=== PATIENT | female | born 1995 | race Caucasian/White ===

== ENCOUNTER 2023-12-29 20:43 | Emergency (ER) | payer OTHER, SELFPAY ==
[2023-12-29 20:44] VITALS: BP 113/57; PULSE 90; RESP 18; TEMP 36.3; O2SAT 100
--- NOTE | 2023-12-29 21:35 | ED.DENTAL ---
HPI - Dental/Oral General Chief complaint: Dental/Oral Stated complaint: dental pain/abscess Time Seen by Provider: 12/29/23 21:06 Source: patient Mode of arrival: ambulatory Limitations: no limitations History of Present Illness HPI Narrative: Patient is a 28-year-old female who presents the ED with report of lower dental pain. Patient reports having pain along tooth number 19 along her left lower mouth for the last 1-1.5 weeks. she has notice intermittent abscess formation along the outer gum line of this tooth. Has had some drainage from the tooth. Also reports pain to tooth number 32 and states it broke off today while she was eating pretzels. Patient reports intermittent diaphoresis. Denies known fever. Denies difficulty breathing or swallowing. Denies vomiting. Patient took Toradol and Tylenol earlier today. She does not currently have a dentist. Related Data Allergies Allergy/AdvReac Type Severity Reaction Status Date / Time No Known Allergies Allergy Verified 12/29/23 20:47 Review of Systems Review of Systems: CONSTITUTIONAL: See HPI. ENT: see HPI. CARDIOVASCULAR: Denies chest pain. RESPIRATORY: Denies dyspnea. GASTROINTESTINAL: Denies abdominal pain, nausea, vomiting. All systems reviewed & are unremarkable except as noted in HPI and below Exam Narrative: GENERAL: Well appearing, well-nourished, non-toxic, in no acute distress. HEAD: Normocephalic, atraumatic. ENT: TTP along L lower gumline surrounding teeth #18-19. Small pinpoint area of previous abscess formation to outer gumline of tooth #19, no active fluctuance or drainage. Cracked tooth to R lower mouth, tooth #32. TTP of gumline surrounding tooth. No focal fluctuance. No stridor or trismus. Tolerating secretions. No erythema to posterior pharynx. no tonsillar hypertrophy. uvula midline. RESPIRATORY: Airway patent, respirations nonlabored. No stridor or distress. CARDIOVASCULAR: Regular rate and rhythm MUSCULOSKELETAL: Moves all extremities. No gross deformities. SKIN: Warm, dry, normal color. NEURO: A&O X3. Speech clear. PSYCHIATRIC: Appropriate mood and affect. Normal interaction. Course Vital Signs Vital signs: Vital Signs Temperature 97.4 F L 12/29/23 20:44 Pulse Rate 90 12/29/23 20:44 Respiratory Rate 18 12/29/23 20:44 Blood Pressure 113/57 L 12/29/23 20:44 Pulse Oximetry 100 12/29/23 20:44 Oxygen Delivery Room Air 12/29/23 20:44 Temperature 97.4 F L 12/29/23 20:44 Pulse Rate 90 12/29/23 20:44 Respiratory Rate 18 12/29/23 20:44 Blood Pressure 113/57 L 12/29/23 20:44 Pulse Oximetry 100 12/29/23 20:44 Oxygen Delivery Room Air 12/29/23 20:44 MDM - Dental/Oral MDM Narrative Medical decision making narrative: Patient's pain is consistent with dental caries. There are no focal signs of space-occupying abscess at this time, does appear consistent with recent abscess but no focal fluctuance right now. The patient is controlling secretions well without signs of airway compromise. Patient is felt reasonable for outpatient follow-up with dental evaluation. Will start patient on Augmentin. Advised to continue Tylenol and ibuprofen as needed for pain. Given list of dentists to follow up with. Given return precautions. Discharged in stable condition. Medical Records Attestation: I reviewed the patient's medical records. Discharge Plan Discharge Clinical Impression: Toothache, Dental caries, Dental abscess, Fracture of tooth Patient Disposition: Home, Self-Care Condition: Stable Instructions: Antibiotic Form, Dental Abscess (ED), Toothache (ED) Additional Instructions: Take antibiotics as prescribed. Finish the entire course. Continue Tylenol and ibuprofen around the clock as needed for pain. Stay well hydrated. Follow-up with dentist for further evaluation. Return to the ED if you experience worsening or severe pain or swelling, large abscess formation, unable to keep
[2023-12-29] MEDS: KETOROLAC (*BKC) 60 MG/2 ML VIAL IM (21:40)
[2023-12-29] MEDS: AMOXICILLIN/CLAVULANATE K 875-125 MG TAB 1 TABLET PO (21:40)
== END 2023-12-29 21:47 | disposition home or self-care (01) ==
LOC: ANHED 21:41
PROVIDERS: Emergency Provider Physician Assistant
DX: K04.7 Periapical abscess without sinus (principal); K02.9 Dental caries, unspecified; S02.5XXA Fracture of tooth (traumatic), initial encounter for closed fracture; K08.89 Other specified disorders of teeth and supporting structures; X58.XXXA Exposure to other specified factors, initial encounter
CPT/HCPCS: 96372; 99283; A9270; J1885

== ENCOUNTER 2025-05-31 17:22 | Emergency (ER) | payer MEDICAID, SELFPAY ==
--- OUTSIDE RECORDS SUMMARY | 2025-01-30 08:30 | XMS_ITS ---
Author Organization [facility] Address [address] [place], [place] [address] Care Team Providers Care Night Auditor Name Role Phone Roberta Hollis Unavailable [phone] REASON FOR VISIT confirmation of preg Encounters Encounter Location Date Provider Diagnosis [address] [address] 01/30/2025 Roberta Hollis Plan Of Treatment No Information Progress Notes * Michelle SETHDOB: [birth year] (30 yo F)Acc No.[id number]:01/30/2025 Progress Note Patient: Blu Orrley Provider: Dawit Hollis M.D. :1995 A ge:29 Y S ex:Female Date:01/30/2025 Phone: Address:[address] [place], [place] [id number] Subjective: * Chief Complaints: * C onfirmation of preg * Electronic signature of Yanely Hollis on 05/31/2025 at 05:23 PM SHEET CUTTER Sign off status: Pending * Provider: Dawit Hollis M.D. Date: 0 01/30/2025 Generated for Tji ng/Fanickg/eTransmitting on: 07/31/2024 05:23 PM SHEET CUTTER
--- OUTSIDE RECORDS SUMMARY | 2025-01-30 09:00 | XMS_ITS ---
Author Organization [facility] Address [address] [place], [place] [address] Care Team Providers Care Dealer Compliance Representative Name Role Phone Telma Roberta Unavailable [phone] REASON FOR VISIT confirmation of , self pay Encounters Encounter Location Date Provider Diagnosis [address] [address] 01/30/2025 Roberta Hollis Plan Of Treatment No Information Progress Notes * Michelle SETHDOB: [birth year] (30 yo F)Acc No.[id number]:01/30/2025 Progress Notes Patient: Blu Orrley Provider: Dawit Hollis M.D. :1995 A ge:29 Y S ex:Female Date:01/30/2025 Phone: Address:[address] [place], [place] [id number] Subjective: * Chief Complaints: * C onfirmation of , self pay * Electronic signature of Yanely Hollis on 05/31/2025 at 05:23 PM CAN TOP SETTER Sign off status: Pending * Provider: Dawit Hollis M.D. Date: 0 01/30/2025 Generated for Tji ng/Faxing/eTransmitting on: 07/31/2024 05:23 PM CAN TOP SETTER
--- OUTSIDE RECORDS SUMMARY | 2025-05-31 17:23 | XMS_ITS | Encounter Summary ---
Author Organization [facility] Address [address] [place] [address] Care Team Providers Care Facility Designer Name Role Phone No, Physician Primary Care Provider [phone] Miscellaneous, Not In File Primary Care Provider Unavailable No, Physician Primary Care Provider [phone] Miscellaneous, Not In File Primary Care Provider Unavailable No, Physician Primary Care Provider [phone] Encounter Details Date Type Department Care Team (Late st Contact Info) Description 06/07/2017 Documentation [facility] Case Management [address] [place] [address] Allison Quiles, HAND TUFTER Social History Tobacco Use Types Packs/Day Years Used Date Smoking Tobacco: Some Days Cigarettes Smokeless Tobacco: Never Alcohol Use Standard Drinks/Week Comments No 0 (1 standard drink = 0.6 oz pur e alcohol) Comments No Sex and Gender Information Value Date Recorded Sex Assigned at Not on file Legal Sex Female 10:35 AM WIRER PASSENGER CAR Gender Identity Female 2023 7:33 PM CDT Sexual Orientation Not on file documented as of this encounter Functional Status * Mayo Fall Risk Question Answer Date of Assessment Author History of Falling 0 06/07/2017 7:36 PM Katerine Jones RN Secondary Diagnosis 0 06/07/2017 7:36 PM CS T Katerine Riddle RN Ambulatory Aids 0 06/07/2017 7:36 PM Katerine Catalan RN Intravenous Therapy/Heparin/Saline Lock 0 06/07/2017 7:36 PM Katerine Jones RN Gait/Transferring 0 06/07/2017 7:36 PM Katerine Jones RN Mental Status 0 06/07/2017 7:36 PM Katerine Romero RN * Fall Risk Interventions Question Answer Date of Assessment Author All Low Fall Interventions Applied Yes 06/07/2017 7:36 PM Katerine Jones RN * Question Answer Date of Assessment Author BP Method Automatic 06/07/2017 9:[address], RN MAP (mmHg) 87 06/07/2017 11:00 PM Katerine Romero RN * Fall Risk Interventions Question Answer Date of Assessment Author All Low Fall Interventions Applied Yes 06/07/2017 7:36 PM Katerine Jones RN * Question Answer Date of Assessment Author BP Method Automatic 06/07/2017 9:[address], RN documented as of this encounter Plan of Treatment Not on file documented as of this encounter Visit Diagnoses Not on filedocumented in this encounter Additional Health Concerns Infection Onset Date Last Indicated Resolved Time COVID: Suspected 06/03/2020 06/03/2020 06/03/2020 4:32 AM WIRER PASSENGER CAR Respiratory Infection (JODIE), contact + droplet Comment:Automatically added due to negative COVID-19 result. 06/03/2020 06/03/2020 06/17/2020 3:0 5 AM WIRER PASSENGER CAR COVID19 06/19/2021 06/19/2021 07/05/2021 3:05 AM WIRER PASSENGER CAR COVID: Recovered Comment:Added based on recent COVID infection. 07/05/2021 07/26/2021 11/02/2021 3:05 AM C DT COVID: Suspected 07/01/2023 07/01/2023 07/01/2023 5:33 AM WIRER PASSENGER CAR COVID: Suspected 02/08/2024 02/08/2024 02/08/2024 8:35 PM CDT documented as of this encounter Care Teams Facility Designer Relationship Specialty Start Date End Date No, Physician PCP - General 10/23/16 03/15/18 Miscellaneous, Not In File PCP - General 03/16/18 No, Physician PCP - General 03/26/19 02/12/23 Miscellaneous, Not In File PCP - General 02/13/2306/30 No, Physician PCP - General 07/01/23 documented as of this encounter
--- OUTSIDE RECORDS SUMMARY | 2025-05-31 17:23 | XMS_ITS | Patient Health Record ---
Author Organization [facility] Address [address] [place] [address] Care Team Providers Care Latin Teacher Name Role Phone Magalis Garcíabelen Primary Care Provider [phone] Allergies Allergen (clinical drug ingredient) Drug/Non Drug Allergy documented on EMR Reaction Allergy Type Onset Date Status Information temporarily unavailable Trazodone (uncoded) hives Allergy Active Reason For Referral No Information Medications Medication SIG (Take, Route, Frequency, Duration) Notes Start Date End Date Status CeleXA 40 MG 1 tablet Orally Once a day; Duration: 30 day(s) 01/23/2017 Not-Taking traZODone HCl 100 MG 1 tablet at bedtime Orally Once a day out for 1 month Not-Taking Zoloft 50 MG 1 tablet Orally Once a day stopped taking 1 month ago Not-Taking Vistaril 25 MG 1-2 capsule as needed Orally at night; Duration: 30 day(s) 01/23/2017 Not-Taking BuSpar 15 MG 2 tablets Orally Twice a day; Duration: 30 days 05/16/2017 Not-Taking BuSpar 30 MG 1 tablet Orally three times daily; Duration: 30 days 01/23/2017 Active hydrOXYzine HCl 25 MG 1 tablet as needed Orally every 8 hrs; Duration: 30 day(s) 12/12/2017 Active traZODone HCl 150 MG 1 tablet at bedtime Orally Once a day; Duration: 30 day(s) 12/12/2017 Active Wellbutrin 75 MG 1 tablet Orally twice a day; Duration: 30 days 11/22/2017 Active LaMICtal 25 MG 1 tablet daily x 2 weeks, then increase to 2 tablets daily Orally once daily; Duration: 30 day(s) 08/22/2017 Active BuSpar 15 MG 1 tablet Orally Twice a day; Duration: 30 days 11/22/2017 Active Social History Tobacco Use: Social History Observation Description Date Details (start date - stop date) Current Smoker NA - NA Dont use, Tobacco Use/Smoking Question Answer Notes Are you a current smoker How often do you smoke cigarettes? every day How many cigarettes a day do you smoke? 31 or mo re How soon after you wake up do you smoke your fir st cigarette? within 5 minutes Are you interested in quitting? Not ready to keshawn t Additional Findings: Tobacco User Chain smoker Problems Problem Type SNOMED Code ICD Code Onset Dates Problem Status W/U Status Risk Notes Problem Information temporarily unavailable Primary insomnia (F51.01) Active confirmed Problem Information temporarily unavailable Tobacco dependence (F17.200) Active confirmed Problem Information temporarily unavailable Mood disorder (F39) Active confirmed Problem Information temporarily unavailable Anxiety (F41.9) Active confirmed Problem Information temporarily unavailable Depression, unspecified depression type (F32.9) Active confirmed Plan Of Treatment Future Test Test Name Order Date Test, Urine 05/30/2018 Drug Analysis, Unknown, Qual 05/30/2018 Insurance Providers Payer Name Payer Address Payer Phone Subscriber Number Group Number Insured Name Patient Relationship to Insured Coverage Start Date Coverage End Date [employer] [address] [place] [address] [id number] Michelle Sauceda Self - patient is the insured 7 [employer] [facility] [address] [place] [address] [id number] Michelle Sauceda Self - patient is the insured 7 Medical (General) History Medical History History ICD Code Anxiety Depression Bipolar disorder Hospitalization History Reason Date(Month/Year) Touchette-cutting, anger 09/2016 suicide attempt I took 50 [facility] 2015
--- OUTSIDE RECORDS SUMMARY | 2025-05-31 17:24 | XMS_ITS | Patient Health Record ---
Author Organization [facility] Address [address] [place], [place] [address] Care Team Providers Care Hearing Impaired Teacher Name Role Phone Roberta Hollis Unavailable [phone] Reason For Referral No Information Plan Of Treatment No Information
[2025-05-31 17:27] VITALS: BP 109/67; PULSE 75; RESP 18; TEMP 36; O2SAT 100
--- NOTE | 2025-05-31 18:03 | ED.GENADULT ---
HPI - General Adult General Chief complaint: Dental/Oral Stated complaint: tooth infection Time Seen by Provider: 05/31/25 17:49 History of Present Illness HPI narrative: 30-year-old female presented to the emergency department for evaluation for worsening dental pain and right-sided ear pain. Patient reports symptoms started few days ago. Patient does have extended history of dental fracture and dental caries. Patient has been attempting to get outpatient follow-up with a dentist. Patient did just have a child delivery approximately 17 days ago. Related Data Allergies Allergy/AdvReac Type Severity Reaction Status Date / Time trazodone Allergy Intermediate Hives Verified 05/31/25 17:24 Review of Systems Review of Systems: All systems reviewed & are unremarkable except as noted in HPI and below Exam Narrative: APPEARANCE: Well appearing, no pain, no distress, well-nourished. HEAD: normocephalic, atraumatic. EYES: PERRLA/EOMI, conjunctivae clear. NOSE: Normal no drainage EARS:TMS clear with good light reflex. THROAT: Pharynx clear, no exudate. NECK: Supple. No adenopathy, no masses. RESPIRATORY: Airway patent, respirations nonlabored. Clear to auscultation bilaterally, no rales, rhonchi, wheezing. CARDIOVASCULAR: Regular rate and rhythm without murmurs rubs or gallops. ABDOMINAL: Soft, nontender, nondistended, normal bowel sounds MUSCULOSKELETAL: Moves all extremities. Strength/ROM intact, No edema, No calf tenderness. NEURO: Alert. Cranial nerves II through XII intact. Good gait. Good coordination SKIN: Warm, dry. Normal Color Course Vital Signs Vital signs: Vital Signs Temperature 96.8 F L 05/31/25 17: Pulse Rate 75 05/31/25 17:27 Respiratory Rate 18 05/31/25 17:27 Blood Pressure 109/67 05/31/25 17:27 Pulse Oximetry 100 05/31/25 17:27 Temperature 96.8 F L 05/31/25 17:27 Pulse Rate 75 05/31/25 17:27 Respiratory Rate 18 05/31/25 17:27 Blood Pressure 109/67 05/31/25 17:27 Pulse Oximetry 100 05/31/25 17:27 Medical Decision Making MDM Narrative Medical decision making narrative: 30-year-old female presents to the emergency department for evaluation for dental pain. Patient was started on antibiotics in the emergency department. Differential Diagnosis Differential Diagnosis: dental abscess, dental fracture, dental caries, trismus Vital Signs Vital Signs: Vital Signs Temperature 96.8 F L 05/31/25 17:27 Pulse Rate 75 05/31/25 17:27 Respiratory Rate 18 05/31/25 17:27 Blood Pressure 109/67 05/31/25 17:27 Pulse Oximetry 100 05/31/25 17:27 Temperature 96.8 F L 05/31/25 17:27 Pulse Rate 75 05/31/25 17:27 Respiratory Rate 18 05/31/25 17:27 Blood Pressure 109/67 05/31/25 17:27 Pulse Oximetry 100 05/31/25 17:27 Discharge Plan Discharge Clinical Impression: Toothache, Dental caries, Otalgia Patient Disposition: Home Condition: Stable Instructions: Antibiotic Form, Toothache (ED) Additional Instructions: Tylenol and ibuprofen for pain control. Replace Tylenol with [place] for additional pain control. Antibiotic as directed until completed. Have close follow-up with your dentist. [place] as needed to help with congestion and ear pain. If you have any worsening symptoms then please call or return to the emergency department. [facility] [address] [place] [id number] Patient Language: Luxembourgish Prescriptions: New hydrocodone-acetaminophen 5-325 mg tablet 1 tablet PO Q12H PRN (Reason: pain) Qty: 14 0RF amoxicillin-pot clavulanate 875-125 mg tablet 1 tablet PO Q12H 7 Days Qty: 14 0RF No Action amoxicillin-pot clavulanate 875-125 mg tablet 1 tablet PO Q12H 7 Days Qty: 14 0RF Follow-up/Referrals: PHYSICIAN,MAIL OFFICER [Primary Care Provider, Internal Medicine] Stand Alone Forms: Work/School Release IP
--- OUTSIDE RECORDS SUMMARY | 2025-05-31 18:10 | XMS_ITS | Clinical Summary ---
Author Organization [facility] Address [address] [place] [address] Care Team Providers Care Finishing Range Supervisor Name Role Phone No, Physician Primary Care Provider [phone] Allergies Active Allergy Reactions Criticality Noted Date Comments Trazodone Hives Medium 04/10/2024 Medications ondansetron (ZOFRAN) 4 mg tablet Take 1 tablet (4 mg total) by mouth 2 (two) times a day as needed for nausea 20 tablet 5 5 Active acetaminophen 500 mg capsuleIndicat ions:Pain Take 2 capsules (1,000 mg total) by mouth every 6 (six) hours 30 tablet 5 Active ibuprofen (ADVIL,MOTRIN) 600 mg tabletIndicati ons:Pain Take 1 tablet (600 mg total) by mouth every 6 (six) hours 30 tablet 5 Active docusate sodium (COLACE) 100 mg capsuleIndicat ions:constipat ion,Stool Softener Take 1 capsule (100 mg total) by mouth 2 (two) times a day as needed for constipation 30 capsule 5 Active ferrous sulfate 325 mg (65 mg of elemental iron) tabletIndicati ons:Iron Deficiency Anemia Take 1 tablet (325 mg total) by mouth daily with breakfast 30 tablet 11 5 026 Active ibuprofen (ADVIL,MOTRIN) 600 mg tablet Take 1 tablet (600 mg total) by mouth every 6 (six) hours as needed for pain 20 tablet 4 025 Discontin ued(Stop Taking at Discharge ) Active Problems Problem Noted Date Diagnosed Date uterine contractions 05/14/2025 Overview (05/14/2025): Summer Rouse is a 30 y.o. female at 36w5d who is dated by 3T trimester ultrasound and is being admitted for labor. Admit to L&D: Labs: CBC and T&S pending. Expectant management of labor. FWB: Continuous monitoring. tracing category I. ID: 3rd trimester HIV (>28 wga) negative on 05/10. GBS prelim neg 05/10, final result pending, ordered to start PCN given pending final result and . RPR on admission: pending. History of genital HSV or HSV 1/2 seropositivity: No. Membrane Status: intact. Indications for UDS: positive urine drug screen during this . Verbal consent obtained for UDS: Yes. MOF: Plans to formula feed. Urine drug screen pending. Patient informed of results: pending. MOC: Plans to use DMPA for contraception. Pain management: Does not desire epidural, alternative pain management options discussed. Post DVT prophylaxis: The patient has the following MAJOR risk factors none and the following MINOR risk factors parity >/=3. SCDs will be ordered for VTE prophylaxis . complicated by: #Elevated 1 hr: Elevated 1h GTT by POC glucose after BMZ injection that was completed 05/12. Likely GDM vs steroid induced hyperglycemia. Ordered for OB insulin gtt. #LPNC: For SW consult PP #Hx of precipitous delivery: In G5 #VZV NI: for varivax PP care following vaginal delivery 05/14 Overview (05/16/2025): # ID: Afebrile. No signs/symptoms of infection. #VZV NI: for varivax PP # Heme: QBL 300 mL. Hemodynamically stable. # CV/Pulm: Vital signs stable, within normal limits. 1x MR BP not meeting criteria for gHTN at this time # GI/: Tolerating PO. Voiding spontaneously. #Elevated 1 hr: Elevated 1h GTT by POC glucose after BMZ injection that was completed 05/12. Likely GDM vs steroid induced hyperglycemia. S/p OB insulin gtt. Patient early AM PPD1, did not obtain. PPD2 fasting glucose was 72, wnl. # Pain: Controlled with above regimen. # MOC: Depo-provera (ordered) # MOF: Formula feeding. Urine drug screen negative Patient informed of results: yes. # Post DVT prophylaxis: The patient has the following MAJOR risk factors none and the following MINOR risk factors parity >/=3. SCDs ordered for VTE prophylaxis. # Disposition: Follow up task sent to [facility] scheduling pool for appointments in 2 and 6 weeks. Appointments scheduled. Desires discharge home today. #LPNC: Seen by SW consult PP Encounter for supervision of normal in third trimester 05/12/2025 Overview (05/12/2025): Patient with suboptimal dating (22w or greater), for elective induction of labor at 41w w/weekly NSTs @ 39w. 1st Trimester: [x] Dating Criteria: 06/06/25 EDC by 3T formal US [x] Labs: T&S: O+ H/H: Rubella: immune VZV: NR HepB SAg: NR Surface Antibody (Immune status): immune HepB Core Antibody: NR Hep C: NR HIV: NR RPR: NR [x] NG/CT/Trich: negx3 [x] UCx: CSIG [] Hgb electrophoresis: Date [x] Pap: NILM 11/07/2023 [] IOB EPDS: deferred due to late to care and normal anatomy [] Genetic screening: deferred due to late to care and normal anatomy [] Carrier Screen: deferred due to late to care and normal anatomy [] ASA at 12 weeks (if indicated): deferred due to late to care and normal anatomy 2nd Trimester: [x] Anatomy ultrasound: normal 05/11 [x] Placenta: left lateral [] 1hr GTT (24-28wks): [] EPDS= PNBHS referral (if indicated): [x] Flu Shot (Sep-Jun): 05/12 [x] Tdap (27-36wks): 05/12 [x] Rhogam (if Rh neg): NA [] education (colostrum, expected breast changes). 3rd Trimester: [x] H/H: 10. Plt: 274 HIV: NR RPR: NR T&S: O+ [x] GBS: pending 05/10 [] NG/CT/Trich: negx3 [x] RSV Vaccine (Mar-Jul @ 32-36w6d) weeks [x] Final discussion-Discussed Baby Friendly-skin to skin, rooming in, support, formula safety. Counseling: [x] Method of delivery: anticipate vaginal [x] Timing of delivery: 41w IOL given 3T dating, to be scheduled 06/13 at 0800 [x] Method of Feeding: Discussed baby friendly, skin to skin, rooming in, support. Formula safety. [x] Method of Contraception: Desires DMPA as bridge to interval BS, not ready to sign consents today. Discussed 30-day maturation of consents needed. [] Residential Treatment Specialist: [] Car seat discussed [] PP depression counseling [] A visit is recommended at 2 and 6 weeks . There is a virtual visit option at 2 weeks . During that appointment we will check BP (if indicated), mental and physical wellness. Contraception will be discussed if patient chooses. Your discharge provider will recommend scheduling these visits upon discharge from the hospital. [] Gardasil vaccine: Elevated glucose tolerance test 05/12/2025 Overview (05/12/2025): Elevated 1h GTT by POC glucose after BMZ injection that was completed 05/12. Plan: - Discussed GDM vs steroid induced hyperglycemia, risks/benefits of glucose monitoring discussed. Patient desires to hold off glucose monitoring until repeat screening of diagnosis. - For repeat 1h GTT on 05/19 labor 05/10/2025 Overview (05/12/2025): She was admitted to [facility] 05/10-05/12 for contractions. She was given BMZ, complete 05/12. Tobacco dependence 04/10/2024 Primary insomnia 04/10/2024 Anxiety 04/10/2024 Dentalgia 04/21/2022 Depression 01/17/2021 Overview (01/17/2021): -History of depression, anxiety, and PTSD -Previously on medications 4 years ago -Offered medications and [facility], declines medication but open to [facility] Plan -[facility] to arrange care Methamphetamine abuse 01/17/2021 Overview (04/04/2021): 4Ps screen: positive - 4 Domestic Violence screen: negative Food/housing insecurity screen: positive Prescription Drug Monitoring database search: [facility]: No [place]: No Rehab: once (5d) in 06/2020, multiple relapses since We reviewed with . Summer Rouse that she has a diagnosis of methamphetamine use. Plan -Growth US in 4 weeks -Serial ultrasounds -Urine toxicologies will be sent with every visit. Amphetamine abuse 12/31/2020 Overview (12/31/2020): Rehab 06/2020 x 5 days with multiple relapses since. Weekly groups/counseling. Homeless 12/31/2020 Overview (01/17/2021): -Currently working with DCFS to find housing -2 living children in foster care Plan -Social work following Dental caries 10/24/2017 Resolved Problems Problem Noted Date Diagnosed Date Resolved Date Gonorrhea affecting pregnanc y in second trimester 01/17/2021 11/07/2023 Overview (01/17/2021): -GC(+) on 10/10/20, 12/24/20, 01/12/21 -Treated with CTX on 12/24/20 Plan -Treat with CTX 500 mg IM today -Needs GINO in 3 weeks (02/07) Subchorionic hemorrhage in second trimester 01/17/2021 11/07/2023 Overview (01/17/2021): -01/17 US with subchorionic hemorrhage 47 mm mean, with clot covering internal cervical os Plan -Recommend pelvic rest until at least reassess at anatomy scan in 4 weeks Supervision of high-risk pre gnancy, second trimester 01/16/2021 11/07/2023 Overview (04/04/2021): First Trimester: [x] Dating Criteria: 2nd T US [] Labs: O (+), Ab collect 01/17, Rubella collect 01/17, VZV collect 01/17, HIV neg, HepBSAg neg, Hep C NR, RPR NR [x] Baseline labs: Hgb 13.2, plt 334, Cr 0.67, LFTs wnl [] Genetic Screening: [] Hgb electrophoresis (if indicated) [x] GC/CT/Trich: GC (+), CT/Trich neg [x] UCx: GBS (+) [x] Pap: NILM 11/2020 [x] PNBHS referral: Patient interested in PB[facility], given resources today [] ASA at 12 weeks: Not indicated 2nd Trimester: [] Anatomy ultrasound [] Placenta Location: posterior [] CBC/RPR [] 1hr gtt at 24-28wks: [] Flu Shot (Sep-Dec) [] Tdap (27-36wks) [] Rhogam (if Rh neg): 3rd Trimester: [] CBC/HIV/RPR/T&S [] GBS [] GC/CT Counseling [] Method of delivery: Anticipate vaginal delivery [] Method of contraception: undecided [] Method of feeding: undecided [] COVID vaccine Cellulitis of right thigh 03/26/2020 Retained complete placenta 0 12/24/2020 Encounters Date Type Department Care Team Description 05/26/2025 3:15 PM ASIC DESIGN ENGINEER Office Visit [facility] [address] [place] [address] Floor [address] [place] [phone] Yesenia Suarez MD Encounter for routine follow-up (Primary Dx); Antepartum anemia 05/14/2025 7:41 AM ASIC DESIGN ENGINEER - 05/16/2025 1:42 PM ASIC DESIGN ENGINEER Hospital Encounter [address] [phone] Jean-Claude Engel MD Tsai, Stephanie Marie, MD uterine contractions (Primary Dx) Discharge Disposition: Discharge to home or self care 05/13/2025 Telephone [facility] [address] [place] [address] Floor [address] [place] [phone] Turner Kohler 05/12/2025 12:45 PM ASIC DESIGN ENGINEER Initial [facility] [address] [place] [address] Floor [address] [place] [phone] Maxwell Khan MD GA: 36w3d 05/11/2025 9:30 AM ASIC DESIGN ENGINEER Ancillary Procedure [address] 5th [place] [address] 05/11/2025 Telephone [facility] [address] [place] [address] Floor [address] [place] [phone] Everardo Frederick 05/10/2025 3:36 PM ASIC DESIGN ENGINEER - 05/11/2025 7:11 PM ASIC DESIGN ENGINEER Hospital Encounter [address] [phone] Luci Cleveland MD Willers, Denise Michelle Sarver, MD Discharge Disposition: Discharge to home or self care 05/08/2025 Orders Only [facility] [address] [place] [address] Floor [address] [place] [phone] Summer Toledo, RN Encounter for supervision of normal , antepartum, unspecified (Primary Dx) 05/08/2025 Telephone [facility] [address] [place] [address] Floor [address] [place] [phone] Leila Kilgore LPN 04/16/2025 12:09 AM CDT - 04/16/2025 1:34 AM CDT Hospital Encounter [facility] [address] [place] [phone] Allison Juarez MD Discharge Disposition: Discharge to home or self care from Last 3 Months Immunizations Immunization Administration Dates Next Due DTaP 04/10/2001, 0,03/07/1997,10/23,1996 HPV, Unspecified 07/11/2011 Hep A, Pediatric 07/11/2011 Hep B, Adolescent or Pediatric 03/07/1997,1995,1996 HiB 04/10/2001, 7,1996,07/08 IPV 03/14/2002, 1,03/07/1997,10/23,1996 Influenza, Trivalent, Preser vative Free, Intramuscular 05/12/2025 MMR 08/21/2000,07/31/1998 Meningococcal MCV4, Unspecified 07/11/2011 RSV, Bivalent, Protein Subun it Rsvpref, Diluent (Abrysvo) 05/12/2025 Tdap 05/12/2025,07/11/2011 Varicella 05/16/2025(Deferred: Patient Refused),07/11/2011,07/31/1998 Medical History Medical History Date Comments Anxiety Depression Meds around 2018 . Scoliosis Asthma Gonorrhea 2020 Family History Medical History Relation Name Comments Cancer Father Diabetes Father Heart disease Father Brain cancer Son pilocytic nancy cytoma Relation Name Status Comments Father Son Social History Tobacco Use Types Packs/Day Years Used Date Smoking Tobacco: Former Cigarettes 2017 Smokeless Tobacco: Never Tobacco Cessation:Counseling Given: Not Answered Alcohol Use Standard Drinks/Week Comments Not Currently 0 (1 standard drink = 0.6 oz pur e alcohol) rarely PHQ-2 Answer Date Recorded PHQ-2 Total Score (If total score is 3 or more points, staff should administer the PHQ-9) 0 04/16/2025 Humiliation, Afraid, Rape, and Kick questionnair e Answer Date Recorded Within the last year, have y ou been afraid of your partner or ex-partner? No 04/16/2025 Within the last year, have y ou been humiliated or emotionally abused in other ways by your partner or ex-partner? No Within the last year, have y ou been kicked, hit, slapped, or otherwise physically hurt by your partner or ex-partner? No 04/16/2025 Within the last year, have y ou been raped or forced to have any kind of sexual activity by your partner or ex-partner? No 04/16/2025 Social Connection and Isolation Panel Answer Date Recorded In a typical week, how many times do you talk on the phone with family, friends, or neighbors? Three times a week 05/15/20 How often do you get togethe r with friends or relatives? Three times a week 05/15/2025 How often do you attend chur ch or quaker services? Never 05/15/2025 Do you belong to any clubs o r organizations such as spiritism groups, unions, fraternal or athletic groups, or school groups? No 05/15/2025 How often do you attend meet ings of the clubs or organizations you belong to? Never 05/15/2025 Are you , , di vorced, , never , or living with a partner? Living with partner 05/15/2025 AUDIT-C Answer Date Recorded Q1: How often do you have a drink containing alcohol? Never 04/16/2025 Q2: How many drinks containi ng alcohol do you have on a typical day when you are drinking? Patient does not drink Q3: How often do you have si x or more drinks on one occasion? Never 04/16/2025 Overall Financial Resource Strain (CARDIA) Answe r Date Recorded How hard is it for you to pa y for the very basics like food, housing, medical care, and heating? Not very hard 05/15/2025 [facility] - Occupational Stress Questionnaire Answer Date Recorded Do you feel stress - tense, restless, nervous, or anxious, or unable to sleep at night because your mind is troubled all the time - these days? Not at all 04/16/2025 Exercise Vital Sign Answer Date Recorde d On average, how many days pe r week do you engage in moderate to strenuous exercise (like a brisk walk)? 3 days 04/16/2025 On average, how many minutes do you engage in exercise at this level? 60 min 04/16/2025 Hunger Vital Sign Answer Date Recorded Within the past 12 months, y ou worried that your food would run out before you got the money to buy more. Never true 05/26/20 Within the past 12 months, t he food you bought just didn't last and you didn't have money to get more. Never true 05/26/2025 PRAPARE - Transportation Answer Date Re corded In the past 12 months, has l ack of transportation kept you from medical appointments or from getting medications? No 05/02 In the past 12 months, has l ack of transportation kept you from meetings, work, or from getting things needed for daily living? No 05/15/2025 Housing Stability Vital Sign Answer Vicente e Recorded In the last 12 months, was t here a time when you were not able to pay the mortgage or rent on time? No 05/15/2025 In the past 12 months, how m any times have you moved where you were living? 0 05/15/2025 At any time in the past 12 m onths, were you homeless or living in a jail (including now)? No 05/15/2025 [facility] Utilities Answer Date Recorded In the past 12 months has th e electric, gas, oil, or water company threatened to shut off services in your home? No 04/16/2025 [place] Depression Scale Answer Date Recorded [place] Depression Scale Total 0 05/26/2025 The thought of harming myself has occurred to me . Never 05/26/2025 Personal Safety Answer Date Recorded Have you ever been in or are you currently in a harmful physical or emotional relationship or is someone making you feel afraid or unsafe? Denies 05/14/2025 Comments No Sex and Gender Information Value Date Recorded Sex Assigned at Not on file Legal Sex Female 10:35 AM ASIC DESIGN ENGINEER Gender Identity Female 2023 7:33 PM CDT Sexual Orientation Not on file Obstetrics History Para Term AB IAB SAB Ectopic Multiple Livin g Live Births 6 4 3 1 2 2 0 4 4 Date Outcome GA Total Labor Labor/2nd/3rd Weight Sex Type Anes PTL Luis A1 A5 Name Clin 2010 SAB 8w0 d SAB 2011 Term 3.26 kg (7 lb 3 oz) M Vag-Sp ont Livin g 2013 Term 3.289 kg (7 lb 4 oz) M Vag-Sp ont Livin g 0 SAB 16w 0d SAB 2020 Term 37w 1d 2h 34m 2h 11m/0h 17m/0h 06m 2.65 kg (5 lb 13.5 oz) M Vag-Sp ont None N Livin g 8 9 [facility],TENISHA YABOB Y Bennie m, Alexander hartmann MD Complications:None,Precipito us Labor (<3 hours) Delivery Location:[facility] ([facility]) 2024 36w 5d 0h 13m 0h 08m/0h 05m 2.83 kg (6 lb 3.8 oz) F Vagina l None Y Livin g 8 9 Elin Schumacher MD Complications:Precipitous La bor (<3 hours) Delivery Location:[facility] Main C ampus ([id number]) Comments 2. 2011 - pitocin induction for post-dates. Clavicle fracture at delivery. 3. 2013 - pitocin induction for post-dates. 4. 2019 - home delivery, placenta in the ED. Placenta pathology - acute chorio. No gross abnormalities. +fentanyl and amphetamine. 5. Current- FOB #3. Summary Episode Dates Number of Fetuses Estimated Date of Delivery 04/16/2025 - Present (05/31/2025) 1 06/06/2025 (set by Yenny weldon, Carleen Castro MD on 05/11/2025 based on Ultrasound on 05/11/2025) Dating Summary Based On [facility] [place] Diff Last Menstrual Period (LMP Unknown) Ultrasound on 05/10/2025 06/15/2025 -1w2d GA:34w6d Comment:Bedside US performed by resident overnight. Ultrasound on 05/11/2025 06/06/2025 Working GA:36w2d Comment:Formal US performed by control systems designer. Vitals Pregravid Weight Height TWG (As of 05/31/2025) Pregrav id BMI 149.9 cm (4' 11) Date GA Fund Present FHR Mvmt BP Weight Edema Alb Glu Ket Dil/ Eff/Sta 5 32w5d Inpatient data not displayed here. See encounter summary. 5 36w2d Inpatient data not displayed here. See encounter summary. 5 36w5d Inpatient data not displayed here. See encounter summary. Notes Progress Notes - Hospital En counter - 05/16/2025 - GA:36w5d 05/16/2025 - 36w5d - Josie Escalante MSW Social Work contacted for medication assistance. Social Work verifies that patient is self-pay and notes indicate she has met with medicaid specialist during prior admission last week. Social Work confirms via [facility] and [facility] that Summer Rouse is still self-pay. Follow-up email sent to [employer]. Patient meets criteria for medication voucher. Medications to be vouchered: -Vitamin D3 for infant - Ibuprofen 600mg (30 tabs) Social Work faxes medication voucher form to mobile pharmacy. JAKE Gutierrez, SONIA Telecommunications Engineer Women [facility] Infants Units DESIGN ENGINEER 05/16/2025 - 36w5d - Josie Escalante MSW Social Work speaks with [facility] Hotline who confirms that they do not plan to open an investigation or pursue custody of infant: Arabella Armijo. They plan to open the family up for voluntary services at home. and family cleared to discharge home together. JAKE Gutierrez, SONIA Telecommunications Engineer Women [facility] Infants Units DESIGN ENGINEER 05/16/2025 - 36w5d - Calvin Matute MD Post Progress Note Delivery Date/Time: 05/14/2025 9:16 AM Delivery method: Vaginal [[id number]] Subjective Flatus: Yes Pain: Well controlled Diet: Tolerating regular diet. Ambulating independently Voiding spontaneously Lochia equal to menses Patient feeling well, pain well controlled. Meeting milestones. Desires discharge home today. Scheduled Medications acetaminophen, 1,000 mg, oral, Q6H NAJMA docusate sodium, 100 mg, oral, BID ibuprofen, 600 mg, oral, Q6H NAJMA viatmin, 1 tablet, oral, Daily polyethylene glycol, 17 g, oral, Daily PRN Medications benzocaine-menthoL calcium carbonate hydrocortisone medroxyPROGESTERone ondansetron ODT OR ondansetron polyethylene glycol Tdap varicella zoster Vitals: Temp: [36.5 C (97.7 F)-37 C (98.6 F)] 37 C (98.6 F) Pulse: [99-112] 99 BP: (110-126)/(62-83) 110/62 Resp: [16-18] 18 SpO2: [97 %-100 %] 100 % No intake or output data in the 24 hours ending 05/16/25 0652 Physical Exam General: Not in acute distress. Cardiovascular: Regular rate Lungs: Non-labored. Abdomen: Soft, mildly distended, appropriately tender to palpation. Fundus below umbilicus. Extremities: Warm and well-perfused. Neuro: Globally intact Recent Labs Lab Units 05/16/25 0535 05/14/25 0840 05/14/25 0819 05/10/25 2129 05/10/25 1741 WBC K/cumm -- -- 12.00* -- 10.42* HEMOGLOBIN g/dL -- -- 11.0* -- 10.7* HEMATOCRIT % -- -- 33.4* -- 33.4* PLATELETS K/cumm -- -- 304 -- 274 CREATININE mg/dL -- -- 0.52* -- 0.51* AST Units/L -- -- -- -- 21 ALT Units/L -- -- -- -- 10 GLUCOSE mg/dL -- -- 78 -- 95 POC GLUCOSE MONITOR mg/dL 72 81 -- < > -- < > = values in this interval not displayed. Assessment and Plan 30 y.o. PPD#2from Problem Care Following Vaginal Delivery # ID: Afebrile. No signs/symptoms of infection. #VZV NI: for varivax PP # Heme: QBL 300 mL. Hemodynamically stable. # CV/Pulm: Vital signs stable, within normal limits. 1x MR BP not meeting criteria for gHTN at this time # GI/: Tolerating PO. Voiding spontaneously. #Elevated 1 hr: Elevated 1h GTT by POC glucose after BMZ injection that was completed 05/12. Likely GDM vs steroid induced hyperglycemia. S/p OB insulin gtt. Patient early AM PPD1, did not obtain. PPD2 fasting glucose was 72, wnl. # Pain: Controlled with above regimen. # MOC: Depo-provera (ordered) # MOF: Formula feeding. Urine drug screen negative Patient informed of results: yes. # Post DVT prophylaxis: The patient has the following MAJOR risk factors none and the following MINOR risk factors parity >/=3. SCDs ordered for VTE prophylaxis. # Disposition: Follow up task sent to [facility] scheduling pool for appointments in 2 and 6 weeks. Appointments scheduled. Desires discharge home today. #LPNC: Seen by SW consult PP Slava Matute MD Obstetrics & Gynecology, PGY-1 05/16/25 R4 Attestation I agree with the above documentation. PPD2 from . Desires DMPA for contraception. Meeting all milestones. Anticipate DC home today. Mary Miller MD PGY-4 Cosigned by Aminah Gonzalez MD at 05/16/2025 2:02 PM ASIC DESIGN ENGINEER DESIGN ENGINEER DESIGN ENGINEER DESIGN ENGINEER Associated attestation - Aminah Gonzalez MD - 05/16/2025 2:02 PM ASIC DESIGN ENGINEER Resident physician Dr. Matute saw and examined the patient, we discussed their findings, and I am in agreement with the plan based on our discussion and on my chart review. I did not personally examine the patient. Summer Rouse is PPD#2 s/p at 36w5d after presenting in labor. She 1x MR BP, but has otherwise remained normotensive. She had an elevated 1 hour GCT, following ANCS, so fBG assessed today and 72. Plan for discharge home since meeting milestones. Aminah Gonzalez MD 05/15/2025 - 36w5d - Riley Holliday ace, MD Post Progress Note Delivery Date/Time: 05/14/2025t 9:16 AM Delivery method: Vaginal [[id number]] Subjective Flatus: Yes Pain: Well controlled Diet: Tolerating regular diet. Ambulating independently Voiding spontaneously Lochia equal to menses Patient feeling well, pain well controlled. Denies dizziness/lightheadedness. Walking the hallways this morning. Informed of negative UDS. Meeting milestones. Scheduled Medications acetaminophen, 1,000 mg, oral, Q6H NAJMA docusate sodium, 100 mg, oral, BID ibuprofen, 600 mg, oral, Q6H NAJMA viatmin, 1 tablet, oral, Daily polyethylene glycol, 17 g, oral, Daily PRN Medications benzocaine-menthoL calcium carbonate hydrocortisone medroxyPROGESTERone ondansetron ODT OR ondansetron polyethylene glycol Tdap varicella zoster Vitals: Temp: [36.4 C (97.5 F)-36.8 C (98.2 F)] 36.5 C (97.7 F) Pulse: [82-161] 89 BP: (96-141)/(52-74) 112/58 Resp: [16-18] 16 SpO2: [91 %-100 %] 100 % Intake/Output Summary (Last 24 hours) at 05/15/2025 0745 Last data filed at 05/14/2025 1054 Gross per 24 hour Intake 1088.27 ml Output 300 ml Net 788.27 ml Physical Exam General: Not in acute distress. Cardiovascular: Regular rate Lungs: Non-labored. Abdomen: Soft, mildly distended, appropriately tender to palpation. Fundus below umbilicus. Extremities: Warm and well-perfused. Neuro: Globally intact Recent Labs Lab Units 05/14/25 0840 05/14/25 0819 05/11/25 1328 05/10/25 2129 05/10/25 1741 WBC K/cumm -- 12.00* -- -- 10.42* HEMOGLOBIN g/dL -- 11.0* -- -- 10.7* HEMATOCRIT % -- 33.4* -- -- 33.4* PLATELETS K/cumm -- 304 -- -- 274 CREATININE mg/dL -- 0.52* -- -- 0.51* AST Units/L -- -- -- -- 21 ALT Units/L -- -- -- -- 10 GLUCOSE mg/dL -- 78 -- -- 95 POC GLUCOSE MONITOR mg/dL 81 -- 160 < > -- < > = values in this interval not displayed. Assessment and Plan 30 y.o. PPD#1from Problem Care Following Vaginal Delivery # ID: Afebrile. No signs/symptoms of infection. #VZV NI: for varivax PP # Heme: QBL 300 mL. Hemodynamically stable. # CV/Pulm: Vital signs stable, within normal limits. 1x MR BP not meeting criteria for gHTN at this time # GI/: Tolerating PO. Voiding spontaneously. #Elevated 1 hr: Elevated 1h GTT by POC glucose after BMZ injection that was completed 05/12. Likely GDM vs steroid induced hyperglycemia. S/p OB insulin gtt. Patient early AM PPD1, for PPD2 fasting glucose # Pain: Controlled with above regimen. # MOC: Depo-provera (ordered) # MOF: Formula feeding. Urine drug screen negative Patient informed of results: yes. # Post DVT prophylaxis: The patient has the following MAJOR risk factors none and the following MINOR risk factors parity >/=3. SCDs ordered for VTE prophylaxis. # Disposition: Follow up task not sent. Continue routine care. #LPNC: For SW consult PP Mary Holliday MD Obstetrics & Gynecology, PGY-1 05/15/25 R4 Attestation: PPD#1 s/p uncomplicated . Continue routine care. Nelson Yi MD PGY-4, OBGYN Cosigned by Devonte Alegre MD at 05/15/2025 11:42 AM ASIC DESIGN ENGINEER DESIGN ENGINEER DESIGN ENGINEER DESIGN ENGINEER DESIGN ENGINEER Associated attestation - Devonte Alegre MD - 05/15/2025 11:42 AM ASIC DESIGN ENGINEER Images from the original note were not included. I have seen and examined the patient on 05/15/25. I agree with the findings and plan of care as documented in the resident's/fellow's note. PPD 1 - doing well. Continue routine care. Follow up appointments made. Devonte Alegre MD 05/14/2025 - 36w5d - Riley Holliday ace, MD R1 Update Patient complete. Dr Vera and Dr. Yi aware and in house. To start pushing Mary Holliday MD Obstetrics & Gynecology, PGY-1 DESIGN ENGINEER 05/14/2025 - 36w5d - Riley Holliday ace, MD R1 Update Updated by RN patient SROM @0855. SVE , Cat I FHT PCN started @0844 for pending final GBS result at 36w5d Mary Holliday MD Obstetrics & Gynecology, PGY-1 DESIGN ENGINEER DESIGN ENGINEER 05/14/2025 - 36w5d - Renetta Sandoval NP Images from the original note were not included. Patient is a 30 year old @ 36w5d who presents for painful contractions. SVE: /BB. VSS. Denies VB, LOF and endorses +FM. BSUS: Vertex. Patient desires DMPA for BC. Plans to bottle feed and does not want an epidural. Plan discussed with Dr. Aguila. Orders to admit to L&D for PTL. S/p BMZ 05/12/25. GBS Negative. IV started and admission labs drawn and sent. ELOISA Brambila-BC 05/14/25 DESIGN ENGINEER Progress Notes - Initial Pre makenna - 05/12/2025 - GA:36w3d 05/12/2025 - 36w3d - Maggie Khan MD OB INITIAL VISIT Summer Rouse is a 30 y.o. at 36w3d by 3rd trimester ultrasound who presents for her first OB visit. No LMP recorded (lmp unknown). Patient is . is unplanned and desired. is complicated by late care, hx positive UDS, hx precipitous delivery, elevated 1h GTT by POC glucose, MJ use in , asthma (no meds). Denies PSH. She was recently [facility] for contractions and dilated to 340/-4. She had a formal US that confirmed her dating and normal anatomy. Formula. DMPA as bridge to BS. Reproductive partner's name: Jey Armijo, supportive Patient not yet taking PNV. movement: Yes Vaginal Bleeding: No LOF: No Contractions/cramping: none Past Medical History: Diagnosis Date Anxiety Asthma Depression Meds around 2018. Gonorrhea 2020 Scoliosis History reviewed. No pertinent surgical history. OB History Para Term AB Living 6 3 3 0 2 3 SAB IAB Ectopic Multiple Live Births 2 0 0 0 3 # Outcome Date GA Lbr Jaukb/2nd Weight Sex Type Anes PTL Lv 6 Current 5 Term 06/19/21 37w1d 02:11 / 00:17 2.65 kg (5 lb 13.5 oz) M Vag-Spont None N LUIS Complications: Precipitous Labor (<3 hours) Name: JOHANA ROUSE Apgar1: 8 Apgar5: 9 4 SAB 08/2019 16w0d SAB 3 Term 2013 3.289 kg (7 lb 4 oz) M Vag-Spont LUIS 2 Term 2011 3.26 kg (7 lb 3 oz) M Vag-Spont LUIS 1 2010 8w0d SAB Obstetric Comments 2. 2011 - pitocin induction for post-dates. Clavicle fracture at delivery. 3. 2013 - pitocin induction for post-dates. 4. 2019 - home delivery, placenta in the ED. Placenta pathology - acute chorio. No gross abnormalities. +fentanyl and amphetamine. 5. Current- FOB #3. BULL LADLE TENDER History: Pap History:Negative cytology in 2023.No history of abnormal pap. STI History: none Genetic History: [-] Mother's Age > 34 years [-] Sickle Cell Disease or Trait () [-] Thalasemia (Uzbek, Norwegian, Medit or ; MCV <80) [-] Zak Sachs Disease (Rastafari, Cajun, Hungarian Chilean) [-] Down's Syndrome [-] Neural Tube Defects (Meningomyelocele, Spina Bifida or Anencephaly) [-] Other Developmental Delay [-] Cystic Fibrosis [-] Walter's Chorea [-] Muscular Dystrophy [-] Hemophilia [-] Other Heritable condition HOME MEDICATIONS: ondansetron (ZOFRAN) 4 mg tablet Allergies as of 05/12/2025 - Reviewed 05/12/2025 Allergen Reaction Noted Trazodone Hives 04/10/2024 Family History Problem Relation Age of Onset Heart disease Father Diabetes Father Cancer Father Brain cancer Son 4 pilocytic astrocytoma Social History Tobacco Use Smoking status: Former Current packs/day: 0.00 Types: Cigarettes Start date: 2008 Quit date: 2017 Years since quittin.8 Smokeless tobacco: Never Substance and Sexual Activity Drug use: Yes Types: Marijuana Sexual activity: Yes Partners: Male control/protection: None Alcohol Use: Not At Risk (04/16/2025) AUDIT-C Frequency of Alcohol Consumption: Never Average Number of Drinks: Patient does not drink Frequency of Binge Drinking: Never Physical Exam: BP 115/64 (BP Location: Right arm, Patient Position: Sitting) Pulse 110 Resp 18 Wt 140 lb (63.5 kg) LMP (LMP Unknown) SpO2 100% BMI 28.28 kg/m General: NAD, mood appropriate Pulmonary: Non-labored Cardiovascular: Regular rate Abdomen: soft, non-tender,gravid Extremities: Warm and well perfused GENITAL EXAM: deferred Labs: Lab Results Component Value Date ABORH O Positive 05/10/2025 IDCOOMB Negative 05/10/2025 [id number] Nonreactive 05/10/2025 LABRPR Nonreactive 05/10/2025 RUBELIGG Reactive 05/10/2025 HEPBSAG Nonreactive 05/10/2025 Ultrasound: Indication: confirmation and dating. IUP previously confirmed on US performed 05/11/25 corresponding to WYATT 06/06/25. heart rate: 155bpm Assessment/Plan: 30 y.o. at 36w3d. Problem List Elevated glucose tolerance test Overview Elevated 1h GTT by POC glucose after BMZ injection that was completed 05/12. Plan: - Discussed GDM vs steroid induced hyperglycemia, risks/benefits of glucose monitoring discussed. Patient desires to hold off glucose monitoring until repeat screening of diagnosis. - For repeat 1h GTT on 05/19 Encounter for supervision of normal in third trimester - Primary Overview Patient with suboptimal dating (22w or greater), for elective induction of labor at 41w w/weekly NSTs @ 39w. 1st Trimester: [x] Dating Criteria: 06/06/25 EDC by 3T formal US [x] Labs: T&S: O+ H/H: Rubella: immune VZV: NR HepB SAg: NR Surface Antibody (Immune status): immune HepB Core Antibody: NR Hep C: NR HIV: NR RPR: NR [x] NG/CT/Trich: negx3 [x] UCx: CSIG [] Hgb electrophoresis: Date [x] Pap: NILM 11/07/2023 [] IOB EPDS: deferred due to late to care and normal anatomy [] Genetic screening: deferred due to late to care and normal anatomy [] Carrier Screen: deferred due to late to care and normal anatomy [] ASA at 12 weeks (if indicated): deferred due to late to care and normal anatomy 2nd Trimester: [x] Anatomy ultrasound: normal 05/11 [x] Placenta: left lateral [] 1hr GTT (24-28wks): [] EPDS= PNBHS referral (if indicated): [x] Flu Shot (Mar-Jun): 05/12 [x] Tdap (27-36wks): 05/12 [x] Rhogam (if Rh neg): NA [] education (colostrum, expected breast changes). 3rd Trimester: [x] H/H: Plt: 274 HIV: NR RPR: NR T&S: O+ [x] GBS: pending 05/10 [] NG/CT/Trich: negx3 [x] RSV Vaccine (Mar-Jul @ 32-36w6d) weeks [x] Final discussion-Discussed Baby Friendly-skin to skin, rooming in, support, formula safety. Counseling: [x] Method of delivery: anticipate vaginal [x] Timing of delivery: 41w IOL given 3T dating, to be scheduled 06/13 at 0800 [x] Method of Feeding: Discussed baby friendly, skin to skin, rooming in, support. Formula safety. [x] Method of Contraception: Desires DMPA as bridge to interval BS, not ready to sign consents today. Discussed 30-day maturation of consents needed. [] Residential Treatment Specialist: [] Car seat discussed [] PP depression counseling [] A visit is recommended at 2 and 6 weeks . There is a virtual visit option at 2 weeks . During that appointment we will check BP (if indicated), mental and physical wellness. Contraception will be discussed if patient chooses. Your discharge provider will recommend scheduling these visits upon discharge from the hospital. [] Gardasil vaccine: Relevant Orders Labor Induction - labor Overview She was [facility] to [facility] 05[facility]10[facility]05[facility]12 for contractions. She was given BMZ, complete 05/12. RTC 1 week plus weekly appointments until IOL which should be scheduled on 06/13 at 41w given 3T dating. Patient seen and discussed with Dr. Morgan. Maxwell Khan MD Cosigned by Gema Morgan MD at 05/16/2025 11:39 PM ASIC DESIGN ENGINEER DESIGN ENGINEER DESIGN ENGINEER Associated attestation - Gema Morgan MD - 05/16/2025 11:39 PM ASIC DESIGN ENGINEER I have seen and examined the patient. I agree with the findings and plan of care as documented in the resident/fellow's note. Progress Notes - Hospital En counter - 05/11/2025 - GA:36w2d 05/11/2025 - 36w2d - Van Son , Ashley MD Lizbeth Antepartum Progress Note Gestational Age: 35w0d Admission Date: 05/10/2025 Length of stay: 1 Admission Diagnosis: r/o labor SUBJECTIVE -Denies contractions overnight. -PCN discontinued. -Reports active movement. No vaginal bleeding/leakage of fluid. Review of Systems Negative except as per above. OBJECTIVE Vitals: Temp Min: 36.3 C (97.3 F) Max: 36.7 C (98.1 F) Pulse Min: 81 Max: 99 BP Min: 108/73 Max: 119/67 Resp Min: 16 Max: 16 SpO2 Min: 98 % Max: 100 % Physical Exam General: No acute distress. Appears stated age and cooperative. Cardiovascular: Regular rate and rhythm. Lungs: Non-labored. Abdomen: Soft, non-tender, gravid. Extremities: Warm and well-perfused. No bilateral lower extremity edema or calf tenderness. Pelvic: Deferred. Neurologic: Alert and oriented x4, non-focal SVE: Lab Review: Recent Results (from the past 24 hours) POCT urinalysis (Clinitek) Collection Time: 05/10/25 4:17 PM Result Value Ref Range Color, ur, POC Light yellow Clarity, UA, POC Cloudy (A) Clear Glucose, ur, POC Negative Negative Bilirubin, ur, POC Negative Negative Ketones, ur, POC Negative Negative Specific gravity, ur, POC 1.010 1.010 - 1.025 Blood, ur, POC Negative Negative pH, ur, POC 6.5 Protein, ur, POC Negative Negative Urobilinogen, ur, POC 0.2 mg/dL mg/dL Nitrites, ur, POC Negative Negative Leukocyte esterase, ur, POC 1+ (A) Negative Type and screen Collection Time: 05/10/25 5:41 PM Result Value Ref Range Mechelle, indirect Negative ABO Rh O Positive Hepatitis B Surface Antigen Blood Collection Time: 05/10/25 5:41 PM Specimen: Blood Result Value Ref Range HepBsAg Nonreactive Nonreactive Hepatitis B surface antibody (immune status) Blood Collection Time: 05/10/25 5:41 PM Specimen: Blood Result Value Ref Range HBsAb (immune status) Nonreactive Hepatitis B core antibody, total Blood Collection Time: 05/10/25 5:41 PM Specimen: Blood Result Value Ref Range Hep B core IgG/IgM Nonreactive Nonreactive RPR Blood Collection Time: 05/10/25 5:41 PM Specimen: Blood Result Value Ref Range RPR Nonreactive Nonreactive HIV 1/2 Antibody plus p24 Antigen Blood Collection Time: 05/10/25 5:41 PM Specimen: Blood Result Value Ref Range HIV 1/2 ab + p24 ag Nonreactive Nonreactive CBC without differential Collection Time: 05/10/25 5:41 PM Result Value Ref Range WBC 10.42 (H) 3.80 - 9.90 K/cumm Hgb 10.7 (L) 11.9 - 15.5 g/dL Hct 33.4 (L) 35.6 - 45.5 % Plt 274 150 - 400 K/cumm MPV 10.6 9.1 - 12.3 fL RBC 4.14 3.90 - 5.20 M/cumm MCV 80.7 (L) 81.3 - 96.4 fL MCH 25.8 (L) 27.1 - 33.3 pg MCHC 32.0 (L) 32.3 - 35.7 g/dL RDW CV 13.3 11.1 - 14.9 % RDW SD 38.8 35.7 - 48.1 fL NRBC abs 0.00 0.00 - 0.01 K/cumm Hepatitis C antibody Blood Collection Time: 05/10/25 5:41 PM Specimen: Blood Result Value Ref Range Hep C Ab Nonreactive Nonreactive Comprehensive metabolic panel Collection Time: 05/10/25 5:41 PM Result Value Ref Range Sodium 138 135 - 145 mmol/L Potassium, pl 3.9 3.3 - 4.9 mmol/L Chloride 104 97 - 110 mmol/L CO2 22 22 - 32 mmol/L Anion gap 12 2 - 15 mmol/L BUN 6 6 - 25 mg/dL Creatinine 0.51 (L) 0.60 - 1.10 mg/dL Glucose 95 70 - 199 mg/dL Calcium 8.9 8.5 - 10.3 mg/dL Bilirubin, total 0.2 0.1 - 1.2 mg/dL Protein, pl 7.0 6.5 - 8.5 g/dL Albumin 3.4 (L) 3.5 - 5.0 g/dL Alk phos 151 (H) 40 - 130 Units/L ALT 10 7 - 45 Units/L AST 21 10 - 45 Units/L Drug screen, urine Collection Time: 05/10/25 5:41 PM Result Value Ref Range Drug screen, ur Negative Director Review Not Indicated N. gonorrhoeae/C. trachomatis Amplification Urine Collection Time: 05/10/25 5:41 PM Specimen: None; Urine Result Value Ref Range C. trachomatis Not Detected Not Detected N. gonorrhoeae Not Detected Not Detected Trichomonas vaginalis PCR Urine Collection Time: 05/10/25 5:41 PM Specimen: Urine Result Value Ref Range Trichomonas DNA Not Detected Not Detected eGFR Collection Time: 05/10/25 5:41 PM Result Value Ref Range eGFR >90 >=60 mL/min/1.73 m2 Check Sample Collection Time: 05/10/25 6:26 PM Result Value Ref Range ABO Rh O Positive POCT glucose Collection Time: 05/10/25 9:29 PM Result Value Ref Range Glucose, POC 170 70 - 199 mg/dL Glucose comment 1 Glu2: RN/MD Notified POCT glucose Collection Time: 05/11/25 12:57 AM Result Value Ref Range Glucose, POC 122 70 - 199 mg/dL ASSESSMENT/PLAN 30 y/o at 35w0d by 3TUS presents with labor # Labor: - presented w/ contractions q5-10m, resolved while in [facility] - admit SSE: no pooling of fluid seen, blood: none, vaginal discharge - white - admit SVE: /-4 > /-4 - wet prep: few clue cells, no trich, moderate WBC, pH 4.5, neg whiff - UDS negative 05/10 - no evidence of SROM given normal wet prep pH, no pooling - no evidence of abruption - irregular contractions, normotensive, no bleeding, reassuring monitoring - deferred tocolysis given GA - BMZ^05/12 2200 - GC/CT/Trich neg x3 Plan: - Ucx pending - GBS pending - PCN discontinued - SVE unchanged overnight #elevated 1hr GTT - 1hr GTT on admission 170; however, POCT and not serum - given BMZ for PTL 05/12 - ordered for carb consistent diet/SSI through steroid window for BG monitoring #Positive UDS #MJ use in - OSH UDS 04/16: +amphetamine and +methamphetamine, patient denies use this preg - pt reports some MJ use to aide with sleep - patient open to discussion but does not want to discuss MJ use in front of father of - UDS negative on admission #G2 clavicular fracture - EPIC notes clavicular fracture at delivery, 7lb3oz, no record of shoulder dystocia #G5 hx precipitous home delivery #FWB -Dating criteria 3T -Genetic screening not completed -Anatomy US to be completed -05/10/2025: BSUS EFW 2956g, vtx -BMZ^05/12@2200 -Mag not indicated -Peds c/s defer given stability -dNST -Next US due 05/11 #MWB -PNL: Rh pos/Ab neg, Rub pending, HIV NR, HepB NR, HepC NR, VZV pending, RPR NR, GC/CT/Trich neg x3, UCx pending -3T labs IOB collected 3T, HIV/RPR NR 05/10 -Pap 10/2023 NILM -1hr GTT 170 (see above) -Tdap not received - Flu to be offered - Placenta posterior - GBS pending - MOF: TBD - MOD: TBD - MOC: TBD Ashley Rowan MD 05/11/25 Cosigned by Jean-Claude Engel MD at 05/11/2025 11:48 AM ASIC DESIGN ENGINEER DESIGN ENGINEER DESIGN ENGINEER Associated attestation - Jean-Claude Engel MD - 05/11/2025 11:48 AM ASIC DESIGN ENGINEER I have seen and examined the patient on 05/11/25. I agree with the findings and plan of care as documented in the resident's/fellow's note.. Likely DC tomorrow She voices plan to get care with our clinic 05/11/2025 - 36w2d - Ashley Rowan MD Update Patient reports feeling no contractions for multiple hours. Discussed repeat cervical exam, patient would like to defer until later this AM given her current comfort. Rare contractions picked up on tocometer. Will take off monitoring, discontinue PCN at this time. For interval cervical exam later in AM, or earlier should patient once again feel contractions. Ashley Rowan MD PGY-2 DESIGN ENGINEER 05/11/2025 - 36w2d - Patsy ortiz, Ladan Arredondo MD R4 Update 1 hr GTT elevated at 170 however was drawn via POCT BG instead of serum lab. Patient received betamethasone after result returned. Will plan for pre/post prandial BG as well as SSI. Plan for GTT 1 week after BMZ window complete. Ladan Aguila MD PGY-4, Obstetrics & Gynecology 05/10/25 DESIGN ENGINEER 05/10/2025 - 36w1d - Emilia Summers NP Images from the original note were not included. Obstetrics H&P Chief Complaint: ctx Estimated Date of Delivery: None noted. Provider: NPNC HPI: Summer Rouse is a 30 y.o. female at 34 6/7wks gestation, dated by [facility] BSUS, 3T trimester Her is complicated by NPNC, FAVIO, h/o precipitous delivery (G5) Pt reports having ctx for the past few hours, approx 5-10 minutes apart. Also reports that she was feeling increased pressure earlier today. Denies LOF, VB. Reports feeling normal FM. Pt reports having an IOB appt at [facility] in 2wks. Reports being seen at an OSH approx 1 mos ago for ctx, reports being told that she was 2cm. Reports that her last period was approx the end of August Denies any VB since. Reports feeling well during this , has only had some difficulty sleeping. Note: reviewed prior visit at OSH 04/16 - pt was unaware that a UDS was sent. Reviewed results of UDS: +amphetamine and + methamphetamine. Pt denies amphetamine or meth use, reports smoking MJ to help her sleep. Pt counseled, consent obtained to send a UDS today. Pt open to discussing any prior use hx, requests that conversations do not happen in front of FOB. Patient Denies: [] Contractions [x] Shortness of Breath [x] Nausea/Vomitting [x] Vaginal Bleeding [x] Headache [x] Abdominal Pain [x] Leaking of Fluid [x] Visual changes [x] Decreased Movement OB History Para Term AB Living 6 3 3 0 2 3 SAB IAB Ectopic Multiple Live Births 2 0 0 0 3 # Outcome Date GA Lbr Jakub/2nd Weight Sex Type Anes PTL Lv 6 Current 5 Term 06/19/21 37w1d 02:11 / 00:17 2.65 kg (5 lb 13.5 oz) M Vag-Spont None N LUIS Complications: Precipitous Labor (<3 hours) Name: JOHANA ROUSE Apgar1: 8 Apgar5: 9 4 SAB 08/2019 16w0d SAB 3 Term 2013 3.289 kg (7 lb 4 oz) M Vag-Spont LUIS 2 Term 2011 3.26 kg (7 lb 3 oz) M Vag-Spont LUIS 1 SAB 2010 8w0d SAB Obstetric Comments 2. 2011 - pitocin induction for post-dates. Clavicle fracture at delivery. 3. 2013 - pitocin induction for post-dates. 4. 2019 - home delivery, placenta in the ED. Placenta pathology - acute chorio. No gross abnormalities. +fentanyl and amphetamine. 5. Current- FOB #3. BULL LADLE TENDER History: No LMP recorded (lmp unknown). Patient is . History of Abnormal Pap: None STD History: none Past Medical History: Diagnosis Date Anxiety Asthma Depression Meds around 2018. Gonorrhea 2020 Scoliosis Chronic hypertension: No Diabetes: No Asthma: No No past surgical history on file. Social History Tobacco Use Smoking status: Former Current packs/day: 0.00 Types: Cigarettes Start date: 2008 Quit date: 2018 Years since quittin.8 Smokeless tobacco: Never Substance and Sexual Activity Drug use: Yes Types: Marijuana Sexual activity: Yes Partners: Male control/protection: None Alcohol Use: Not At Risk (04/16/2025) AUDIT-C Frequency of Alcohol Consumption: Never Average Number of Drinks: Patient does not drink Frequency of Binge Drinking: Never Support System: Supported by SO Safe at home: Yes family history includes Brain cancer (age of onset: 4) in her son; Cancer in her father; Diabetes in her father; Heart disease in her father. Family history of bleeding or clotting disorders: No Family history of defects, genetic disorders, or developmental delay: No Allergies Allergen Reactions Trazodone Hives HOME MEDICATIONS: ibuprofen (ADVIL,MOTRIN) 600 mg tablet Review of Sys: Negative except per HPI Vitals: Temp: [36.3 C (97.3 F)] 36.3 C (97.3 F) Pulse: [88] 88 Resp: [16] 16 BP: (119)/(81) 119/81 Labs Review: Recent Results (from the past 24 hours) POCT urinalysis (Clinitek) Collection Time: 05/10/25 4:17 PM Result Value Ref Range Color, ur, POC Light yellow Clarity, UA, POC Cloudy (A) Clear Glucose, ur, POC Negative Negative Bilirubin, ur, POC Negative Negative Ketones, ur, POC Negative Negative Specific gravity, ur, POC 1.010 1.010 - 1.025 Blood, ur, POC Negative Negative pH, ur, POC 6.5 Protein, ur, POC Negative Negative Urobilinogen, ur, POC 0.2 mg/dL mg/dL Nitrites, ur, POC Negative Negative Leukocyte esterase, ur, POC 1+ (A) Negative Physical Exam: General: NAD, mood appropriate Cardiovascular: Regular rate and rhythm Pulmonary: Clear to ausculation bilaterally Abdomen: Gravid, non-tender Extremities: Warm and well perfused Speculum Exam: no pooling of fluid seen, blood: none, vaginal discharge - white Cervix: 2/30%/bal Wet prep: few clue cells, no trich, mod WBC, pH 4.5 Amy neg whiff Monitoring: Baseline: 130 bpm, Variability: Moderate, Accelerations: Present and Decelerations: None Uterine Activity: Contractions present, q4-8 minutes Interpretation: Reactive Ultrasound: U/S completed by Dr. Josue Vertex presentation Labs: Lab Results Component Value Date ABORH O Positive 06/19/2021 IDCOOMB Negative ABSC 06/19/2021 [id number] Nonreactive 12/13/2020 LABRPR Nonreactive 12/13/2020 RUBELIGG Reactive 06/19/2021 Assessment and Plan Summer Rouse is a 30 y.o. female at 34 6/7wks who presented with ctx #FWB: Reactive NST, +FM #MWB: Abdominal pain/Contraction No e/o PTL, UTI, cervicitis/vaginitis SSE and Wet prep unremarkable Repeat SVE: 09/23/bal Ctx improved after 1L IVF bolus Abdominal exam benign #NPNC labs ordered U/S completed in [facility] by Dr. Josue Plan to admit to [facility] d/t cervical change and h/o precipitous delivery. See resident note for admission H&P and plan. Emilia Summers NP 05/10/25 Cosigned by Gema Morgan MD at 05/12/2025 9:56 PM ASIC DESIGN ENGINEER DESIGN ENGINEER DESIGN ENGINEER Associated attestation - Gema Morgan MD - 05/12/2025 9:56 PM ASIC DESIGN ENGINEER I have seen and examined the patient, see admission H&P. Progress Notes - Orders Only - 05/08/2025 - GA:35w6d 05/08/2025 - 35w6d - Summer Toledo, RN Patient needed orders for anatomy scan for NOB appt. No care and patient thinks she is around 29-30 weeks. Patient scheduled for NOB on 05/25/25 at 1245. Will send message to ultrasound team to see if they can add her on that day. DESIGN ENGINEER Last Filed Vital Signs Vital Sign Reading Time Taken Comments Blood Pressure 102/68 05/26/2025 4:17 PM ASIC DESIGN ENGINEER Pulse 78 05/26/2025 4:17 PM ASIC DESIGN ENGINEER Temperature 36.6 C (97.9 F) 05/16/2025 8:00 AM ASIC DESIGN ENGINEER Respiratory Rate 17 05/16/2025 8:00 AM ASIC DESIGN ENGINEER Oxygen Saturation 100% 05/26/2025 4:17 PM ASIC DESIGN ENGINEER Inhaled Oxygen Concentration - - Weight 55.7 kg (122 lb 11.2 oz) 05/26/2025 4:17 PM ASIC DESIGN ENGINEER Height 149.9 cm (4' 11) 05/14/2025 7:46 AM ASIC DESIGN ENGINEER Body Mass Index 24.78 05/14/2025 7:46 AM ASIC DESIGN ENGINEER Plan of Treatment Health Maintenance Due Date Last Done Comments HPV Vaccines (2 - 3-dose series) 08/08/2011 07/11/2011 Regular Well Visit/Exam 18-64 2014 Cervical Cancer Screening 11/06/2024 11/07/2023, 06/ Depression Screening 05/26/2026 05/26/2025, 04/15/20 25 DTaP/Tdap/Td Vaccine (8 - Td or Tdap) 05/12/2035 05/12/2025, 07/11/2011, 04/10/2001, Additional history exists Varicella Vaccines Completed 07/11/2011, 07/31/1998 Hepatitis B Screening Completed 05/10/2025 , 03/07/1997, 1996, Additional history exists Hepatitis C Screening Completed 05/10/2025, 021 Influenza Vaccine Completed 05/12/2025 Pneumococcal vaccine <65 Aged Out No longer eligible based on patient's age to complete this topic Procedures Procedure Name Priority Date/Time Associated Diagnosis Comments POCT GLUCOSE DEVICE Routine 05/16/2025 5 :35 AM ASIC DESIGN ENGINEER DRUG SCREEN, URINE STAT 05/14/2025 9: 57 AM ASIC DESIGN ENGINEER SURGICAL PATHOLOGY Routine 05/14/2025 9: 29 AM ASIC DESIGN ENGINEER POCT GLUCOSE DEVICE Routine 05/14/2025 8 :40 AM ASIC DESIGN ENGINEER US OB LIMITED Routine 05/14/2025 8:32 AM ASIC DESIGN ENGINEER uterine contractions EGFR STAT 05/14/2025 8:19 AM ASIC DESIGN ENGINEER DIFFERENTIAL AUTO STAT 05/14/2025 8:1 9 AM ASIC DESIGN ENGINEER BASIC METABOLIC PANEL STAT 05/14/2025 8:19 AM ASIC DESIGN ENGINEER TYPE AND SCREEN STAT 05/14/2025 8:19 AM ASIC DESIGN ENGINEER CBC WITH AUTO DIFFERENTIAL STAT 05/14/2025 8:19 AM ASIC DESIGN ENGINEER RPR STAT 05/14/2025 8:19 AM ASIC DESIGN ENGINEER POCT URINALYSIS (CLINITEK) Routine 05/12/2025 12:43 PM ASIC DESIGN ENGINEER POCT GLUCOSE DEVICE Routine 05/11/2025 1 :28 PM ASIC DESIGN ENGINEER POCT GLUCOSE DEVICE Routine 05/11/2025 8 :33 AM ASIC DESIGN ENGINEER US OB 14 WEEKS OR OVER IP Routine 05/11/2025 8:06 AM ASIC DESIGN ENGINEER POCT GLUCOSE DEVICE Routine 05/11/2025 6 :53 AM ASIC DESIGN ENGINEER POCT GLUCOSE DEVICE Routine 05/11/2025 1 2:57 AM ASIC DESIGN ENGINEER POCT GLUCOSE DEVICE Routine 05/10/2025 9 :29 PM ASIC DESIGN ENGINEER URINE CULTURE STAT 05/10/2025 7:18 PM ASIC DESIGN ENGINEER B CHECK SAMPLE STAT 05/10/2025 6:26 PM ASIC DESIGN ENGINEER EGFR STAT 05/10/2025 5:41 PM ASIC DESIGN ENGINEER DRUG SCREEN, URINE Routine 05/10/2025 5: 41 PM ASIC DESIGN ENGINEER COMPREHENSIVE METABOLIC PANEL STAT 05/10/2025 5:41 PM ASIC DESIGN ENGINEER CBC WITHOUT DIFFERENTIAL STAT 05/10/2025 5:41 PM ASIC DESIGN ENGINEER TYPE AND SCREEN STAT 05/10/2025 5:41 PM ASIC DESIGN ENGINEER TRICHOMONAS VAGINALIS PCR Routine 05/10/2025 5:41 PM ASIC DESIGN ENGINEER N. GONORRHOEAE/C. TRACHOMATIS AMPLIFICATION Routine 05/10/2025 5:41 PM ASIC DESIGN ENGINEER GROUP B STREPTOCOCCUS CULTURE Routine 05/10/2025 5:41 PM ASIC DESIGN ENGINEER HEPATITIS C ANTIBODY Routine 05/10/2025 5:41 PM ASIC DESIGN ENGINEER VARICELLA ZOSTER ANTIBODY, IGG Routine 05/10/2025 5:41 PM ASIC DESIGN ENGINEER MEASLES IGG ANTIBODY Routine 05/10/2025 5:41 PM ASIC DESIGN ENGINEER HIV 1/2 ANTIBODY PLUS P24 ANTIGEN STAT 05/10/2025 5:41 PM ASIC DESIGN ENGINEER RPR STAT 05/10/2025 5:41 PM ASIC DESIGN ENGINEER HEPATITIS B CORE ANTIBODY, TOTAL Routine 05/10/2025 5:41 PM ASIC DESIGN ENGINEER HEPATITIS B SURFACE ANTIBODY (IMMUNE STATUS) Routine 05/10/2025 5:41 PM ASIC DESIGN ENGINEER HEPATITIS B SURFACE ANTIGEN Routine 05/10/2025 5:41 PM ASIC DESIGN ENGINEER RUBELLA IGG Routine 05/10/2025 5:41 PM ASIC DESIGN ENGINEER POCT URINALYSIS (CLINITEK) Routine 05/10/2025 4:17 PM ASIC DESIGN ENGINEER AMPHETAMINE, URINE, CONFIRMATION STAT 04/16/2025 12:31 AM CDT CANNABINOIDS, URINE, CONFIRMATION STAT 04/16/2025 12:31 AM CDT URINALYSIS, MICROSCOPIC ONLY STAT 04/16/2025 12:31 AM CDT DRUG SCREEN, URINE L AND D WITH REFLEX CONFIRMATION STAT 04/16/2025 12:31 AM CDT URINALYSIS AND REFLEX TO MICROSCOPIC AND CULTURE STAT 04/16/2025 12:31 AM CDT PAP WITH REFLEX TO HIGH RISK HPV Routine 11/07/2023 10:25 AM CDT Screening for malignant neoplasm of the cervix from Last 3 Months or Most Recently Relevant to Health Maintenance Results * POCT glucose (05/16/2025 5:35 AM ASIC DESIGN ENGINEER) Glucose, POC 72 70 - 199 mg/dL Blood 05/16/2025 5:35 AM ASIC DESIGN ENGINEER 05/16/2025 5:35 AM ASIC DESIGN ENGINEER Rosio Vera MD LAB POCT ORDERABLES - DE VICE Final Result Performing Organization Address [facility] Co de Phone Number [facility] Department [place] [address] * Drug screen, urine (05/14/2025 9:57 AM ASIC DESIGN ENGINEER) [facility] Drug screen, ur Negative Comment: Interpretive Data This test detects the presence of approximately 50 substances using LC-tandem mass spectrometry. For a list of specific compounds and detection limits refer to the Lab Test Guide Book. This test detects both delta-8 and delta-9 THC metabolites and reports them both as T HC. Synthetic cannabinoids are not detected. While this technique is highly specific, false-positive and false-negative findings may occur in very rare circumstances. Contact the [facility] core laboratory for consultation if needed. This test was developed and its performance characteristics determined by [facility]. It has not been cleared or approved by the U.S. Food and Drug Administration. Current interpretive data was last revised 2022. Testing performed by: [facility], [place]., [address] Director Review Not Indicated [facility] Comment:Testing performed by : [place]., [address] Urine 05/14/2025 9:57 AM ASIC DESIGN ENGINEER 05/14/2025 11:53 AM ASIC DESIGN ENGINEER Narrative [facility] - 05/14/2025 12:22 PM ASIC DESIGN ENGINEER Is patient or admitted for delivery?->Yes Select the indication(s) for ordering drug screen:->Substance abuse during (excludes marijuana) history of pos UDS 04/16 Indicate if consent has been obtained for this test:->Consent obtained Rosio Vera MD LAB URINE ORDERABLES Fin al Result Performing Organization Address [facility] Co de Phone Number [facility] Department [place] [address] * Surgical pathology (05/14/2025 9:29 AM ASIC DESIGN ENGINEER) Tissue (Placenta) 05/14/2025 9:29 AM ASIC DESIGN ENGINEER 05/15/2025 9:19 AM ASIC DESIGN ENGINEER Narrative PATHOLOGY [facility] - 05/21/2025 12:02 PM ASIC DESIGN ENGINEER EPIC results best viewed via link to PDF [facility] [place] [address] Note to Patients: This report may contain a detailed description of human tissue sent by a health care provider to the laboratory for pathologic evaluation. The content of this report is essential for diagnosis and may provide important critical findings. This information may be unfamiliar to patients to review without a medical professional present. It is advised that the patient review this report in the presence of a health care provider who can answer questions and explain the details. SURGICAL PATHOLOGY REPORT FINAL Patient Name: SUMMER ROUSE Gender: F : 1995 (Age: 30) Address: [address] [place] [address] Hospital #: [id number] Taken:05/14/2025 Received:05/15/2025 Reported: 05/21/2025 Patient Type: [facility] Inpatient Service: Obstetrics Location: [place] [address] Physician(s): Jayda Petty MD Diagnosis: Placenta, 36 weeks and 5/7 days, delivery - Third trimester placenta, 497.1 g (50th-75th percentile weight for gestational age) - Appropriate villous morphology for gestational age - Three vessel umbilical cord with no histopathologic abnormality - membranes are negative for inflammation - Pigment laden macrophages, suggestive of meconium, present in membranes on chorionic plate sucr/05/21/2025 12:02 By this signature, I attest that the above diagnosis is based upon my personal examination of the slides(and/or other material indicated in the diagnosis). Wen Smith M.D. Report Electronically Reviewed and Signed Out By Wen Smith M.D. 05/21/2025 12:02:47 Microscopic Description and Comment: The sections from the placenta disc shows mature chorionic villi appropriate for the gestational age. No acute inflammation is seen in the trivascular umbilical cord. The membranes are negative for chorioamnionitis. No infarct, villitis, perivillositis, viral cytopathic change, fungal organism, maternal or vasculopathy, vasculitis, or malignancy is identified. History: The patient is a 30-year-old woman at 36 weeks 5 days gestation presenting for contractions. History of precipitous delivery, elevated GTT by POC glucose, and asthma. Operative procedure: Spontaneous vaginal delivery at 36 weeks five days gestation. Specimen(s) Received: A: Placenta, third trimester Gross Description: Received in formalin, labeled with the patient s identifiers and placenta, third trimester is a roughly circular hansen placenta (497.1 g, 17.0 x 15.0 x 4.5 cm) with attached membranes and attached and detached umbilical cord segments (34.5 cm in combined length x 1.0 cm diameter). The trivascular umbilical cord inserts eccentrically (1.5 cm from the nearest disc edge) and is white muller and glistening with no true knots grossly identified. The membranes attach marginally and are muller-brown and translucent with a green tinge. The surface is young-green and glistening with unremarkable unidirectional vessels and no focal lesions grossly identified. The maternal surface is young-brown with intact lobular cotyledons. Serial sectioning reveals red-brown spongy cut surfaces with no focal lesions grossly identified. Picker/Puller sections are submitted as follows: A1 Umbilical cord and membrane roll A2 surface A3-A4 Maternal surface Jar 3. slbjh/05/18/2025 10:57 PA(s): FRANCES Aquino By this signature, I attest that the above diagnosis is based upon my personal examination of the slides(and/or other material). Addenda/Procedures The performance characteristics of some immunohistochemical stains, fluorescence in-situ hybridization tests and immunophenotyping by flow cytometry cited in this report (if any) were determined by the Surgical Pathology and Flow Cytometry Departments at [facility] as part of an ongoing quality control representative program and in compliance with federally mandated regulations drawn from the Clinical Laboratory Improvement Act of 1988 (CLIA '88). Some of these tests rely on the use of analyte specific reagents and are subject to specific labeling requirements by the US Food and Drug Administration. Such diagnostic tests may only be performed in a facility that is certified by the Department of Health and Human Services as a high complexity laboratory under CLIA '88. The FDA has determined that such clearance or approval is not necessary. This test is used for clinical purposes. It should not be regarded as investigational or for research. Nevertheless, federal rules concerning the medical use of analyte specific reagents require that the following disclaimer be attached to the report: This test was developed and its performance characteristics determined by the Surgical Pathology and Flow Cytometry Departments of [facility]. It has not been cleared or approved by the U. S. Food and Drug Administration. IMAGES AND SCANNED DOCUMENTS, IF INCLUDED, ONLY VIEWABLE IN PDF VERSION OF REPORT us Rosio Vera MD LAB PATHOLOGY ORDERABLES Final Result Performing Organization Address City/[facility]/ZIP Co de Phone Number PATHOLOGY [facility] 3rd Floor [place], [place] [phone] * POCT glucose (05/14/2025 8:40 AM ASIC DESIGN ENGINEER) Glucose, POC 81 70 - 199 mg/dL Blood 05/14/2025 8:40 AM ASIC DESIGN ENGINEER 05/14/2025 8:40 AM ASIC DESIGN ENGINEER Rosio Vera MD LAB POCT ORDERABLES - DE VICE Final Result Performing Organization Address City/[facility]/ZIP Co de Phone Number [facility] Department [place] [address] * US OB Limited (05/14/2025 8:32 AM ASIC DESIGN ENGINEER) Anatomical Region Laterality Modality Abdomen N/A Ultrasound Narrative 05/14/2025 8:32 AM ASIC DESIGN ENGINEER I have reviewed the images and agree, cephalic presentation. Rosio Vera MD us Rosio Vera MD IMG OB US PROCEDURES Fin al Result * eGFR (05/14/2025 8:19 AM ASIC DESIGN ENGINEER) Pathologist [facility] eGFR >90 >=60 mL/min/1. 73 m2 Comment: Interpretive Data Reference Interval Normal >/= 90 mL/min/1.73m2 Mildly decreased* 60 - 89 mL/min/1.73m2 Mildly to moderately decreased 45 - 59 mL/min/1.73m2 Moderately to severely decreased 30 - 44 mL/min/1.73m2 Severely decreased 15 - 29 mL/min/1.73m2 Kidney Failure < 15 mL/min/1.73m2 *Relative to young adult level Estimated glomerular filtration rate is determined by the 2020 CKD-EPI equation recommended by the National Kidney Foundation (A Unifying Approach to GFR Estimation: Recommendations of the NKF-ASK Task Force on Reassessing the Inclusion of Race in Diagnosing Kidney Disease, JASN 2020). The CKD-EPI equation should not be used for patients with unstable renal function and has not been validated in children and those over 70. Current interpretive data was last reviewed 2021. Blood 05/14/2025 8:19 AM ASIC DESIGN ENGINEER 05/14/2025 8:28 AM ASIC DESIGN ENGINEER us Renetta Sandoval NP LAB BLOOD ORDERABLES Final Re sult [facility] Department [place] [address] * (ABNORMAL) Differential, auto (05/14/2025 8:19 AM ASIC DESIGN ENGINEER) Pathologist [facility] Neutrophil abs 8.26(H) 1.50 - 6.50 K/cumm Imm gran abs 0.41(H) 0.00 - 0.10 K/cumm [facility] Lymphocyte abs 1.99 0.80 - 3.30 K/cumm [facility] Monocyte abs 1.20(H) 0.20 - 0.80 K/cumm [facility] Eosinophil abs 0.07 0.00 - 0.50 K/cumm [facility] Basophil abs 0.07 0.00 - 0.10 K/cumm [facility] Neutrophil pct 68.8 % [facility] Comment: Interpretive Data Percent cell count reference ranges are not reported, since discordance with absolute values may lead to misinterpretation of CBC data. Current Interpretive Data was last revised on 2017. Imm gran pct 3.4 % [facility] Comment: Interpretive Data Percent cell count reference ranges are not reported, since discordance with absolute values may lead to misinterpretation of CBC data. Current Interpretive Data was last revised on 2017. Lymphocyte pct 16.6 % [facility] Comment: Interpretive Data Percent cell count reference ranges are not reported, since discordance with absolute values may lead to misinterpretation of CBC data. Current Interpretive Data was last revised on 2017. Monocyte pct 10.0 % [facility] Comment: Interpretive Data Percent cell count reference ranges are not reported, since discordance with absolute values may lead to misinterpretation of CBC data. Current Interpretive Data was last revised on 2017. Eosinophil pct 0.6 % [facility] Comment: Interpretive Data Percent cell count reference ranges are not reported, since discordance with absolute values may lead to misinterpretation of CBC data. Current Interpretive Data was last revised on 2017. Basophil pct 0.6 % [facility] Comment: Interpretive Data Percent cell count reference ranges are not reported, since discordance with absolute values may lead to misinterpretation of CBC data. Current Interpretive Data was last revised on 2017. Blood 05/14/2025 8:19 AM ASIC DESIGN ENGINEER 05/14/2025 8:40 AM ASIC DESIGN ENGINEER us Renetta Sandoval DOCUMENT IMAGE TECHNICIAN LAB BLOOD ORDERABLES Final Re sult [facility] Department of Laboratories [place], [place] [phone] * (ABNORMAL) CBC with auto differential (05/14/2025 8:19 AM ASIC DESIGN ENGINEER) WBC 12.00(H) 3.80 - 9.90 K/cumm Hgb 11.0(L) 11.9 - 15.5 g/dL [facility] Hct 33.4(L) 35.6 - 45.5 % [facility] Plt 304 150 - 400 K/cumm [facility] MPV 10.9 9.1 - 12.3 fL [facility] RBC 4.20 3.90 - 5.20 M/cumm [facility] MCV 79.5(L) 81.3 - 96.4 fL [facility] MCH 26.2(L) 27.1 - 33.3 pg [facility] MCHC 32.9 32.3 - 35.7 g/dL [facility] RDW CV 13.9 11.1 - 14.9 % [facility] RDW SD 39.1 35.7 - 48.1 fL [facility] NRBC abs 0.03(H) 0.00 - 0.01 K/cumm [facility] Blood 05/14/2025 8:19 AM ASIC DESIGN ENGINEER 05/14/2025 8:40 AM ASIC DESIGN ENGINEER Renetta Sandoval NP LAB BLOOD ORDERABLES Final Re sult Performing Organization Address City/[facility]/ZIP Co de Phone Number [facility] Department [place] [address] * RPR Blood (05/14/2025 8:19 AM ASIC DESIGN ENGINEER) RPR Nonreactive Nonreactive Blood 05/14/2025 8:19 AM ASIC DESIGN ENGINEER 05/14/2025 8:40 AM ASIC DESIGN ENGINEER Renetta Sandoval NP LAB MICROBIOLOGY - GENERAL OR DERABLES Final Result Performing Organization Address [facility]/ZIP Co de Phone Number [facility] Department [place] [address] * Type and screen (05/14/2025 8:19 AM ASIC DESIGN ENGINEER) ABO Rh O Positive Mechelle, indirect Negative [facility] Blood 05/14/2025 8:19 AM ASIC DESIGN ENGINEER 05/14/2025 8:33 AM ASIC DESIGN ENGINEER Renetta Sandoval NP LAB BLOOD BANK TEST ORDERABLE S Final Result [facility] Department [place] [address] * (ABNORMAL) Basic metabolic panel (05/14/2025 8:19 AM ASIC DESIGN ENGINEER) Pathologist [facility] Sodium 135 135 - 145 mmol/L Potassium, pl 4.0 3.3 - 4.9 mmol/L [facility] Chloride 102 97 - 110 mmol/L [facility] CO2 23 22 - 32 mmol/L [facility] Anion gap 10 2 - 15 mmol/L [facility] BUN 8 6 - 25 mg/dL [facility] Creatinine 0.52(L) 0.60 - 1.10 mg/dL [facility] Glucose 78 70 - 199 mg/dL [facility] Comment: Interpretive Data Fasting glucose >/= 126 mg/dl is diagnostic for diabetes. Fasting is defined as no caloric intake for at least 8 hours. Fasting glucose between 100 mg/dl to 125 mg/dl is diagnostic of prediabetes. In a patient with classic symptoms of hyperglycemia or hyperglycemic crisis, a random glucose >/= 200 mg/dl is diagnostic for diabetes. In the absence of unequivocal hyperglycemia, results should be confirmed by repeat testing. The classification and Diagnosis of Diabetes Diabetes Care 2021; 46: S19-S40. Current interpretive data was last revised 2022. Calcium 9.3 8.5 - 10.3 mg/dL [facility] Blood 05/14/2025 8:19 AM ASIC DESIGN ENGINEER 05/14/2025 8:28 AM ASIC DESIGN ENGINEER Renetta Sandoval NP LAB BLOOD ORDERABLES Final Re sult Performing Organization Address City/[facility]/ZIP Co de Phone Number [facility] Department [place] [address] * (ABNORMAL) POCT urinalysis (Clinitek) (05/12/2025 12:43 PM ASIC DESIGN ENGINEER) Color, ur, POC Yellow Yellow Clarity, UA, POC Clear Clear [facility] Glucose, ur, POC 1+(A) Negative [facility] Bilirubin, ur, POC Negative Negative [facility] Ketones, ur, POC 1+(A) Negative [facility] Specific gravity, ur, POC >=1.030(A) 1.010 - 1.025 [facility] Blood, ur, POC Negative Negative [facility] pH, ur, POC 6.0 [facility] Comment: Interpretive Data Urine pH is affected by diet, medications, systemic acid-base disturbances, and renal tubular function. pH may affect urinary stone formation. For example, urine pH below 6.0 may help reduce the tendency for calcium phosphate stones and pH greater than 6.0 may reduce the tendency for uric acid stone formation. Source: [facility] KuponGid. Last Revised Date: 07-12-2017 Protein, ur, POC 1+(A) Negative [facility] Urobilinogen, ur, POC 0.2 mg/dL mg/dL [facility] Nitrites, ur, POC Negative Negative [facility] Leukocyte esterase, ur, POC 1+(A) Negative [facility] Urine 05/12/2025 12:4 3 PM ASIC DESIGN ENGINEER 05/12/2025 12:43 PM ASIC DESIGN ENGINEER us Maxwell Khan MD LAB POCT ORDERABLES - DEVICE Final Result Performing Organization Address [facility] Co de Phone Number [facility] Department [place] [address] * POCT glucose (05/11/2025 1:28 PM ASIC DESIGN ENGINEER) [facility] Glucose, POC 160 70 - 199 mg/dL Comment:Glu2: POST Glucose comment 1 Glu2: POST [facility] Blood 05/11/2025 1:28 PM ASIC DESIGN ENGINEER 05/11/2025 1:28 PM ASIC DESIGN ENGINEER Luci Cleveland MD LAB POCT ORDERABLES - DEVIC E Final Result Performing Organization Address [facility] Co de Phone Number [facility] Department [place] [address] * POCT glucose (05/11/2025 8:33 AM ASIC DESIGN ENGINEER) Glucose, POC 182 70 - 199 mg/dL Comment:Glu2: POST Glucose comment 1 Glu2: POST [facility] PEREZ Blood 05/11/2025 8:33 AM ASIC DESIGN ENGINEER 05/11/2025 8:33 AM ASIC DESIGN ENGINEER Luci Cleveland MD LAB POCT ORDERABLES - DEVIC E Final Result [facility] One [facility] [place] [address] * US Ob 14 Weeks Or Over (05/11/2025 8:06 AM ASIC DESIGN ENGINEER) [facility] Fetus# Fetus1 VIEWPOINT Estimated Weight 3,072 g&grams VIEWPOINT Placenta Details left lateral, no placental masses VIEWPOINT Presentation Vertex VIEWPOINT Anatomical Region Laterality Modality Abdomen N/A Ultrasound 05/11/2025 9:36 AM ASIC DESIGN ENGINEER Impressions 05/11/2025 12:41 PM ASIC DESIGN ENGINEER Normal biometry and amniotic fluid. Detailed anatomic assessment as above which appeared grossly normal within the limitations of ultrasound, although there are several exceptions due to position and advanced GA. Normal adnexa. Narrative Procedure Note Sweta Hanson MD - 05/11/2025 IMPRESSION: Normal biometry and amniotic fluid. Detailed anatomic assessment as abovewhich appeared grossly normal within the limitations of ultrasound,although there are several exceptions due to position and advancedGA. Normal adnexa. Luci Cleveland MD IMG OB US PROCEDURES Final Result * (ABNORMAL) POCT glucose (05/11/2025 6:53 AM ASIC DESIGN ENGINEER) Glucose, POC 248(H) 70 - 199 mg/dL Comment: Glu2: RN/ Notified FASTING Glucose comment 1 Glu2: RN/ Notified [facility] Glucose comment 2 FASTING [facility] Blood 05/11/2025 6:53 AM ASIC DESIGN ENGINEER 05/11/2025 6:53 AM ASIC DESIGN ENGINEER Luci Cleveland MD LAB POCT ORDERABLES - DEVIC E Final Result Performing Organization Address [facility] Co de Phone Number [facility] [place] [address] * POCT glucose (05/11/2025 12:57 AM ASIC DESIGN ENGINEER) Glucose, POC 122 70 - 199 mg/dL Blood 05/11/2025 12:5 7 AM ASIC DESIGN ENGINEER 05/11/2025 12:57 AM ASIC DESIGN ENGINEER Luci Cleveland MD LAB POCT ORDERABLES - DEVIC E Final Result Performing Organization Address [facility] de Phone Number [facility] [place] [id number] * POCT glucose (05/10/2025 9:29 PM ASIC DESIGN ENGINEER) Glucose, POC 170 70 - 199 mg/dL Comment:Glu2: RN/ Notified Glucose comment 1 Glu2: RN/MD Notified [facility] Blood 05/10/2025 9:29 PM ASIC DESIGN ENGINEER 05/10/2025 9:29 PM ASIC DESIGN ENGINEER Luci Cleveland MD LAB POCT ORDERABLES - DEVIC E Final Result Performing Organization Address [facility] [place] [address] * Urine culture Urine, clean voided (05/10/2025 7:18 PM ASIC DESIGN ENGINEER) Report Final Report: Less than 100,000 colonies/mL (clinically insignificant growth based on current clinical standards) Organism (CLINICALLY INSIGNIFICANT GROWTH [facility] Urine, clean voided 05/10/2025 7:18 PM ASIC DESIGN ENGINEER 05/10/2025 7:37 PM ASIC DESIGN ENGINEER Narrative [facility] - 05/11/2025 9:49 PM ASIC DESIGN ENGINEER Indications for Culture:-> patient Testing performed by [facility] ([phone]) Luci Cleveland MD LAB MICROBIOLOGY - GENERAL ORDERABLES Final Result Performing Organization Address [facility]/ZIP Co de Phone Number [facility] Department [place] [address] * Check Sample (05/10/2025 6:26 PM ASIC DESIGN ENGINEER) ABO Rh O Positive [facility] HC[facility] OTHER 05/10/2025 6:26 PM ASIC DESIGN ENGINEER 05/10/2025 6:33 PM ASIC DESIGN ENGINEER Luci Cleveland MD LAB BLOOD ORDERABLES Final Result Performing Organization Address [facility] de Phone Number [facility] Department [place] [address] [facility] * N. gonorrhoeae/C. trachomatis Amplification Urine (05/10/2025 5:41 PM ASIC DESIGN ENGINEER) C. trachomatis Not Detected Not Detected [facility] N. gonorrhoeae Not Detected Not Detected [facility] Comment: Interpretive Data This assay detects Chlamydia trachomatis and Neisseria gonorrhoeae by nucleic acid amplification testing (NAAT). This assay has been cleared by the [place] Food and Drug administration. The performance characteristics of this test have been verified by the [facility] laboratory. The performance characteristics of this test have not been evaluated in individuals less than 14 years of age. Current Interpretive Data last revised 2023. Urine (None) 05/10/2025 5:41 PM ASIC DESIGN ENGINEER 05/10/2025 6:06 PM ASIC DESIGN ENGINEER us Emilia Summers NP LAB MICROBIOLOGY - GENERAL ORDERABLES Final Result Performing Organization Address [facility] [place] [address] [facility] * Trichomonas vaginalis PCR Urine (05/10/2025 5:41 PM ASIC DESIGN ENGINEER) [facility] Trichomonas DNA Not Detected Not Detected [facility] Urine 05/10/2025 5:41 PM ASIC DESIGN ENGINEER 05/10/2025 6:06 PM ASIC DESIGN ENGINEER Narrative LOUISE [facility] - 05/10/2025 7:33 PM ASIC DESIGN ENGINEER Interpretive Data: This assay detects Trichomonas vaginalis by nucleic acid amplification testing (NAAT). This assay has been cleared by the [place] Food and Drug administration. The performance characteristics of this test have been verified by the [facility] laboratory. Excess blood in specimens may be inhibitory and result in false negative results. The performance of this test has not been evaluated in women or individuals less than 18 years of age. Emilia Summers NP LAB MICROBIOLOGY - GENERAL ORDERABLES Final Result Performing Organization Address [facility] de Phone Number LOUISE [facility] Department [place] [address] [facility] * Drug screen, urine (05/10/2025 5:41 PM ASIC DESIGN ENGINEER) [facility] Drug screen, ur Negative Comment: Interpretive Data This test detects the presence of approximately 50 substances using LC-tandem mass spectrometry. For a list of specific compounds and detection limits refer to the Lab Test Guide Book. This test detects both delta-8 and delta-9 THC metabolites and reports them both as T HC. Synthetic cannabinoids are not detected. While this technique is highly specific, false-positive and false-negative findings may occur in very rare circumstances. Contact the [facility] core laboratory for consultation if needed. This test was developed and its performance characteristics determined by [facility]. It has not been cleared or approved by the [place].S. Food and Drug Administration. Current interpretive data was last revised 2022. Testing performed by: [facility], [place]., [address] Director Review Not Indicated LOUISE MIKE Comment:Testing performed by : [facility], [place]., [address] Urine 05/10/2025 5:41 PM ASIC DESIGN ENGINEER 05/10/2025 6:18 PM ASIC DESIGN ENGINEER Narrative LOUISE MIKE - 05/10/2025 6:44 PM ASIC DESIGN ENGINEER Is patient or admitted for delivery?->No us Emilia Summers NP LAB URINE ORDERABLES Final Result Performing Organization Address City/State/[facility] Co de Phone Number LOUISE [facility] Department [place] [address] * eGFR (05/10/2025 5:41 PM ASIC DESIGN ENGINEER) eGFR >90 >=60 mL/min/1. 73 m2 Comment: Interpretive Data Reference Interval Normal >/= 90 mL/min/1.73m2 Mildly decreased* 60 - 89 mL/min/1.73m2 Mildly to moderately decreased 45 - 59 mL/min/1.73m2 Moderately to severely decreased 30 - 44 mL/min/1.73m2 Severely decreased 15 - 29 mL/min/1.73m2 Kidney Failure < 15 mL/min/1.73m2 *Relative to young adult level Estimated glomerular filtration rate is determined by the 2020 CKD-EPI equation recommended by the National Kidney Foundation (A Unifying Approach to GFR Estimation: Recommendations of the NKF-ASK Task Force on Reassessing the Inclusion of Race in Diagnosing Kidney Disease, JASN 2020). The CKD-EPI equation should not be used for patients with unstable renal function and has not been validated in children and those over 70. Current interpretive data was last reviewed 2021. Blood 05/10/2025 5:41 PM ASIC DESIGN ENGINEER 05/10/2025 5:55 PM ASIC DESIGN ENGINEER us Emilia Summers NP LAB BLOOD ORDERABLES Final Result Performing Organization Address City/State/[facility] Co de [facility] [place] [address] * HIV 1/2 Antibody plus p24 Antigen Blood (05/10/2025 5:41 PM ASIC DESIGN ENGINEER) HIV 1/2 ab + p24 ag Nonreactive Nonreactive Comment:Nonreactive for HIV- 1 antigen and HIV-1/HIV-2 antibodies. No laboratory evidence of HIV infection. If acute HIV infection is suspected, consider testing for HIV-1 RNA. Current interpretive data was last revised on 22. Blood 05/10/2025 5:41 PM ASIC DESIGN ENGINEER 05/10/2025 5:55 PM ASIC DESIGN ENGINEER Emilia Summers NP LAB MICROBIOLOGY - GENERAL ORDERABLES Final Result Performing Organization Address [facility] [place] [address] * Hepatitis C antibody Blood (05/10/2025 5:41 PM ASIC DESIGN ENGINEER) Hep C Ab Nonreactive Nonreactive Comment:Antibodies to HCV no t detected. Does NOT exclude the possibility of recent exposure to HCV. Current interpretive data was last revised on 22 Blood 05/10/2025 5:41 PM ASIC DESIGN ENGINEER 05/10/2025 5:55 PM ASIC DESIGN ENGINEER us Emilia Summers NP LAB MICROBIOLOGY - GENERAL ORDERABLES Final Result Performing Organization Address [facility] [place] [address] * Measles IgG antibody Blood (05/10/2025 5:41 PM ASIC DESIGN ENGINEER) Measles IgG Reactive Comment:Reactive: Results joy ggest response to immunization or prior exposure to the virus. Blood 05/10/2025 5:41 PM ASIC DESIGN ENGINEER 05/10/2025 5:55 PM ASIC DESIGN ENGINEER Emilia Summers NP LAB MICROBIOLOGY - GENERAL ORDERABLES Final Result Performing Organization Address [facility] [place] [address] * Group B streptococcal culture Vaginal/Rectal (05/10/2025 5:41 PM ASIC DESIGN ENGINEER) Pathologist [facility] Report Final Report: Negative Vaginal/Rectal 05/10/2025 5: 41 PM ASIC DESIGN ENGINEER 05/10/2025 6:38 PM ASIC DESIGN ENGINEER Narrative [facility] - 05/14/2025 12:14 PM ASIC DESIGN ENGINEER Testing performed by [facility] ([phone]). Emilia Summers NP LAB MICROBIOLOGY - GENERAL ORDERABLES Final Result Performing Organization Address [facility] [place] [address] * Hepatitis B core antibody, total Blood (05/10/2025 5:41 PM ASIC DESIGN ENGINEER) Pathologist [facility] Hep B core IgG/IgM Nonreactive Nonreactive Blood 05/10/2025 5:41 PM ASIC DESIGN ENGINEER 05/10/2025 5:55 PM ASIC DESIGN ENGINEER Emilia Summers NP LAB MICROBIOLOGY - GENERAL ORDERABLES Final Result Performing Organization Address [facility] Co de Phone Number [facility] [place] [address] * Rubella IgG antibody Blood (05/10/2025 5:41 PM ASIC DESIGN ENGINEER) Pathologist [facility] Rubella IgG Reactive Comment:Reactive: Results joy ggest response to immunization or prior exposure to the virus. Blood 05/10/2025 5:41 PM ASIC DESIGN ENGINEER 05/10/2025 5:55 PM ASIC DESIGN ENGINEER us Emilia Summers NP LAB MICROBIOLOGY - GENERAL ORDERABLES Final Result LOUISE [facility] [place] [address] * RPR Blood (05/10/2025 5:41 PM ASIC DESIGN ENGINEER) RPR Nonreactive Nonreactive Blood 05/10/2025 5:41 PM ASIC DESIGN ENGINEER 05/10/2025 5:55 PM ASIC DESIGN ENGINEER Emilia Summers NP LAB MICROBIOLOGY - GENERAL ORDERABLES Final Result Performing Organization Address [facility] de Phone Number LOIUSE [facility] [place] [address] * Hepatitis B surface antibody (immune status) Blood (05/10/2025 5:41 PM ASIC DESIGN ENGINEER) HBsAb (immune status) Nonreactive Comment:This result is consi stent with a lack of immunity to Hepatitis B Virus when used in the setting of routine screening. Current interpretative data was last revised on 22 Blood 05/10/2025 5:41 PM ASIC DESIGN ENGINEER 05/10/2025 5:55 PM ASIC DESIGN ENGINEER us Emilia Summers NP LAB MICROBIOLOGY - GENERAL ORDERABLES Final Result Performing Organization Address City/[facility] Co de Phone Number LOUISE [facility] Department [place] [address] * Hepatitis B Surface Antigen Blood (05/10/2025 5:41 PM ASIC DESIGN ENGINEER) HepBsAg Nonreactive Nonreactive Blood 05/10/2025 5:41 PM ASIC DESIGN ENGINEER 05/10/2025 5:55 PM ASIC DESIGN ENGINEER Emilia Summers NP LAB MICROBIOLOGY - GENERAL ORDERABLES Final Result Performing Organization Address [facility]/ZIP Co de Phone Number [facility] Department [place] [address] * (ABNORMAL) CBC without differential (05/10/2025 5:41 PM ASIC DESIGN ENGINEER) Pathologist [facility] WBC 10.42(H) 3.80 - 9.90 K/cumm Hgb 10.7(L) 11.9 - 15.5 g/dL [facility] Hct 33.4(L) 35.6 - 45.5 % [facility] Plt 274 150 - 400 K/cumm [facility] MPV 10.6 9.1 - 12.3 fL [facility] RBC 4.14 3.90 - 5.20 M/cumm [facility] MCV 80.7(L) 81.3 - 96.4 fL [facility] MCH 25.8(L) 27.1 - 33.3 pg [facility] MCHC 32.0(L) 32.3 - 35.7 g/dL [facility] RDW CV 13.3 11.1 - 14.9 % [facility] RDW SD 38.8 35.7 - 48.1 fL [facility] NRBC abs 0.00 0.00 - 0.01 K/cumm [facility] Blood 05/10/2025 5:41 PM ASIC DESIGN ENGINEER 05/10/2025 5:54 PM ASIC DESIGN ENGINEER Emilia Summers NP LAB BLOOD ORDERABLES Final Result Performing Organization Address [facility]/ZIP Co de Phone Number [facility] Department [place] [address] * Type and screen (05/10/2025 5:41 PM ASIC DESIGN ENGINEER) Pathologist [facility] Mechelle, indirect Negative ABO Rh O Positive [facility] Blood 05/10/2025 5:41 PM ASIC DESIGN ENGINEER 05/10/2025 6:10 PM ASIC DESIGN ENGINEER Narrative [facility] - 05/10/2025 6:55 PM ASIC DESIGN ENGINEER Has the patient had Daratumumab or Isatuximab in the past 6 months?->Unknown Emilia Summers NP LAB BLOOD BANK TEST ORDERA BLES Final Result Performing Organization Address [facility] Co de Phone Number [facility] Department [place] [address] * (ABNORMAL) Varicella Zoster IgG antibody Blood (05/10/2025 5:41 PM ASIC DESIGN ENGINEER) [facility] VZV IgG Nonreacti ve(A) Reactive Comment:Non-reactive: No det ectable antibody to Varicella-zoster virus. Such individuals are presumed to be uninfected and to be susceptible to primary infection. Blood 05/10/2025 5:41 PM ASIC DESIGN ENGINEER 05/10/2025 5:55 PM ASIC DESIGN ENGINEER Emilia Summers NP LAB MICROBIOLOGY - GENERAL ORDERABLES Final Result Performing Organization Address [facility] de Phone Number [facility] Department [place] [address] * (ABNORMAL) Comprehensive metabolic panel (05/10/2025 5:41 PM ASIC DESIGN ENGINEER) [facility] Sodium 138 135 - 145 mmol/L Potassium, pl 3.9 3.3 - 4.9 mmol/L [facility] Chloride 104 97 - 110 mmol/L [facility] CO2 22 22 - 32 mmol/L [facility] Anion gap 12 2 - 15 mmol/L [facility] BUN 6 6 - 25 mg/dL [facility] Creatinine 0.51(L) 0.60 - 1.10 mg/dL [facility] Glucose 95 70 - 199 mg/dL [facility] Comment: Interpretive Data Fasting glucose >/= 126 mg/dl is diagnostic for diabetes. Fasting is defined as no caloric intake for at least 8 hours. Fasting glucose between 100 mg/dl to 125 mg/dl is diagnostic of prediabetes. In a patient with classic symptoms of hyperglycemia or hyperglycemic crisis, a random glucose >/= 200 mg/dl is diagnostic for diabetes. In the absence of unequivocal hyperglycemia, results should be confirmed by repeat testing. The classification and Diagnosis of Diabetes Diabetes Care 2021; 46: S19-S40. Current interpretive data was last revised 2022. Calcium 8.9 8.5 - 10.3 mg/dL CERNER [facility] Bilirubin, total 0.2 0.1 - 1.2 mg/dL CERNER [facility] Protein, pl 7.0 6.5 - 8.5 g/dL CERNER [facility] Albumin 3.4(L) 3.5 - 5.0 g/dL CERNER [facility] Alk phos 151(H) 40 - 130 Units/L [facility] ALT 10 7 - 45 Units/L [facility] AST 21 10 - 45 Units/L [facility] Blood 05/10/2025 5:41 PM ASIC DESIGN ENGINEER 05/10/2025 5:55 PM ASIC DESIGN ENGINEER us Emilia Summers DOCUMENT IMAGE TECHNICIAN LAB BLOOD ORDERABLES Final Result [facility] Department [place] [address] * (ABNORMAL) POCT urinalysis (Clinitek) (05/10/2025 4:17 PM ASIC DESIGN ENGINEER) Color, ur, POC Light yellow Clarity, UA, POC Cloudy(A) Clear [facility] Glucose, ur, POC Negative Negative [facility] Bilirubin, ur, POC Negative Negative [facility] Ketones, ur, POC Negative Negative [facility] Specific gravity, ur, POC 1.010 1.010 - 1.025 [facility] Blood, ur, POC Negative Negative [facility] pH, ur, POC 6.5 [facility] Comment: Interpretive Data Urine pH is affected by diet, medications, systemic acid-base disturbances, and renal tubular function. pH may affect urinary stone formation. For example, urine pH below 6.0 may help reduce the tendency for calcium phosphate stones and pH greater than 6.0 may reduce the tendency for uric acid stone formation. Source: [employer]. Last Revised Date: 07-12-2017 Protein, ur, POC Negative Negative CERNER [facility] Urobilinogen, ur, POC 0.2 mg/dL mg/dL [facility] Nitrites, ur, POC Negative Negative [facility] Leukocyte esterase, ur, POC 1+(A) Negative [facility] Urine 05/10/2025 4:17 PM ASIC DESIGN ENGINEER 05/10/2025 4:17 PM ASIC DESIGN ENGINEER Luic Cleveland MD LAB POCT ORDERABLES - DEVIC E Final Result [facility] Department [place] [address] * (ABNORMAL) Drug Screen, Urine L and D with Reflex Confirmation (04/16/2025 12:31 AM CDT) Amphetamine, ur Screen Positive, presumptive (A) CutOff 500ng/mL Comment: Interpretive Data - Amphetamines: Samples containing greater than 500 ng/mL d-methamphetamine or other cross-reacting amphetamine compounds are reported as positive. Amphetamine immunoassays are subject to significant false positive rates due to cross-reactivity of non-amphetamine drugs. Confirmatory testing required for definitive results. Current Interpretive Data was last reviewed 2023. Barbiturates, ur Not Detected CutOff 200ng/mL [facility] ([place]) Comment: Interpretive Data - Barbiturates: Samples containing greater than 200 ng/mL secobarbital or other cross-reacting barbiturate compounds are reported as positive. False positive and false negative results are possible. Confirmatory testing required for definitive results. Current Interpretive Data was last reviewed 2023. Benzodiazepines, ur Not Detected CutOff 100ng/mL [facility] ([place]) Comment: Interpretive Data - Benzodiazepines: Samples containing greater than 100 ng/mL nordiazepam or other cross-reacting compounds are reported as positive. False positive and false negative results are possible. Confirmatory testing required for definitive results. Current Interpretive Data was last reviewed 2023. Cannabinoids, ur Screen Positive, presumptive (A) CutOff 50 ng/mL [facility] ([place]) Comment: Interpretive Data - Cannabinoids: Samples containing greater than 50 ng/mL delta-9 THC -COOH or other cross- reacting compounds are reported as positive. False positive and false negative results are possible. Confirmatory testing required for definitive results. Current Interpretive Data was last reviewed 2023. Cocaine, ur Not Detected CutOff 150ng/mL [facility] ([place]) Comment: Interpretive Data - Cocaine: Samples containing greater than 150 ng/mL benzoylecgonine or other cross- reacting compounds are reported as positive. False positive and false negative results are possible. Confirmatory testing required for definitive results. Current Interpretive Data was last reviewed 2023. Fentanyl, Ur Not Detected CutOff 5 ng/mL [facility] ([place]) Comment: Interpretive Data - Fentanyl: Samples containing greater than 5 ng/mL norfentanyl, fentanyl, or other cross-reacting fentanyl compounds are reported as positive. False positive and false negative results are possible. Confirmatory testing required for definitive results. Current Interpretive Data was last reviewed 2023. Methadone, ur Not Detected CutOff 300ng/mL [facility] ([place]) Comment: Interpretive Data - Methadone: Samples containing greater than 300 ng/mL d,l-methadone or other cross-reacting compounds are reported as positive. False positive and false negative results are possible. Confirmatory testing required for definitive results. Current Interpretive Data was last reviewed 2023. Opiates, ur Not Detected CutOff 300ng/mL [facility] ([place]) Comment: Interpretive Data - Opiates: Samples containing greater than 300 ng/mL morphine or other cross-reacting compounds are reported as positive. False positive and false negative results are possible. Confirmatory testing required for definitive results. Current Interpretive Data was last reviewed 2023. Oxycodone, ur NOT DETECTED CutOff 100ng/mL [facility] ([place]) Comment: Interpretive Data - Oxycodone: Samples containing greater than 100 ng/mL oxycodone or other cross-reacting compounds are reported as positive. False positive and false negative results are possible. Confirmatory testing required for definitive results. Current Interpretive Data was last reviewed 2023. Phencyclidine, ur Not Detected CutOff 25 ng/mL [facility] ([place]) Comment: Interpretive Data - Phencyclidine: Samples containing greater than 25 ng/mL phencyclidine or other cross-reacting compounds are reported as positive. False positive and false negative results are possible. Confirmatory testing required for definitive results. Current Interpretive Data was last reviewed 2023. Urine Creatinine 68 mg/dL WILLIAM [facility] ([place]) Comment: Interpretive Data Urine Creatinine: < 10 mg/dL is extremely dilute = or > 10 but < 20 mg/dL is dilute = or > 20 mg/dL is normal Current Interpretive Data was last revised on 2017. Urine 04/16/2025 12:3 1 AM CDT 04/16/2025 12:38 AM CDT Narrative LOUISE GARAY ([place]) - 04/16/2025 2:05 AM CDT Is patient or admitted for delivery?->No Drug of Abuse screening is performed by immunoassay for medical purposes only. This is not to be used for Pain Management purposes. If Detected, confirmation testing will be performed for Amphetamines, Barbiturates, Benzodiazepines, Cannabinoids, Cocaine, Fentanyl, Methadone, Opiates, Oxycodone or Phencyclidine. Allison Juarez MD LAB URINE ORDERABLES Final Result LOUISE GARAY ([place]) 1 [facility] [place] [address] * (ABNORMAL) Urinalysis reflex to microscopic and culture Urine, clean voided (04/16/2025 12:31 AM CDT) Color, ur Yellow Yellow Clarity, ur Clear Clear [facility] ([place]) Specific gravity, ur 1.013 1.003 - 1.030 [facility] ([place]) pH, urine 6.5 LOUISE [facility] ([place]) Comment: Interpretive Data U rine pH is affected by diet, medications, systemic acid-base disturbances, and renal tubular function. pH may affect urinary stone formation. For example, urine pH below 6.0 may help reduce the tendency for calcium phosphate stones and pH greater than 6.0 may reduce the tendency for uric acid stone formation. Source: [employer] Current Interpretive Data was last revised on 2017 Protein, ur ql Negative Negative [facility] ([place]) Glucose, ur ql Negative Negative [facility] ([place]) Ketones, ur Negative Negative [facility] ([place]) Bilirubin, ur Negative Negative [facility] ([place]) Blood, ur Negative Negative [facility] ([place]) Urobilinogen, ur <2.0 <2.0 mg/dL [facility] ([place]) Nitrite, ur Negative Negative CERNER A ([place]) Leukocyte esterase, ur 3+(A) Negative [facility] ([place]) UA reflex comment Reflex to microscopic UA will be performed. LOUISE [facility] ([place]) Urine, clean voided 04/16/2025 12:31 AM CDT 04/16/2025 12:38 AM CDT Allison Juarez MD LAB MICROBIOLOGY - [facility] ORDERABLES Final Result LOUISE GARAY ([place]) 1 [facility] [place] [address] * Cannabinoids, urine, confirmation (04/16/2025 12:31 AM CDT) Delta-8 Carboxy-THC Not Detected Cutoff: 5 ng/mL [place] [facility] Delta-9 Carboxy-THC 43 Cutoff: 5 ng/mL [facility] ([place]) Cannabinoids ur interpretation Positive. [facility] ([place]) Comment: ADDITIONAL INFORMATION This report is intended for use in clinical monitoring and management of patients. It is not intended for use in employment-related testing. This test was developed and its performance characteristics determined by [facility] in a manner consistent with CLIA requirements. This test has not been cleared or approved by the U.S. Food and Drug Administration. Test Performed by: [facility] - [address] [address] Software Asset Manager: Jomar Muller Ph.D.; CLIA# [id number] Urine 04/16/2025 12:3 1 AM CDT 04/16/2025 2:05 AM CDT us Allison Juarez MD LAB URINE ORDERABLES Final Result [facility] ([place]) 1 [facility] [place] [address] [facility] [facility] * (ABNORMAL) Amphetamine Confirmation, Urine (04/16/2025 12:31 AM CDT) Amphetamine Conf, Ur Confirmed Positive(A) CutOff 150ng/mL Comment:Testing performed by : [facility], [address] [place]., [address] Methamphetamine Conf, Ur Confirmed Positive(A) CutOff 150ng/mL [facility] ([place]) Comment:Testing performed by : [facility], [address] [place]., [address] MDA Conf, Ur Does Not Confirm CutOff 150ng/mL [facility] ([place]) Comment:Testing performed by : [facility], [address] [place]., [address] MDMA Conf, Ur Does Not Confirm CutOff 50 ng/mL [facility] ([place]) Comment:Testing performed by : [facility], [address] [place]., [address] MDEA Conf, Ur Does Not Confirm CutOff 150ng/mL [facility] ([place]) Comment:Testing performed by : [facility], [address] [place]., [address] MBDB Conf, Ur Does Not Confirm CutOff 150ng/mL [facility] ([place]) Comment: Interpretive Data This test detects the presence or absence of drug compounds using LC Tandem mass spectrometry. While this test is highly specific, false positive and false negative results may occur in very rare circumstances. Contact the laboratory for consultation, if needed. Performance characteristics were determined by the [facility] in a manner consistent with CLIA requirement and has not been cleared or approved by the U.S. Food and Drug Administration. Current interpretive data was last revised on 2020. Testing performed by: [facility], 1 [facility], [address] Urine 04/16/2025 12:3 1 AM CDT 04/16/2025 10:20 AM CDT Allison Juarez MD LAB URINE ORDERABLES Final Result Performing Organization Address [facility] Co de Phone Number LOUISE GARAY ([place]) 1 [facility] [place] [address] * (ABNORMAL) Urinalysis, microscopic only (04/16/2025 12:31 AM CDT) WBC, ur 0-5 0 - 5 /HPF RBC, ur 0-2 0 - 2 /HPF [facility] GARAY ([place]) Epithelial cells, squamous, ur 1-5 0 - 5 /HPF [facility] GARAY ([place]) Mucous, ur Present(A) [facility] Edwards ([place]) Culture Reflex Comment Reflex conditions for urine culture (WBC >10) not met. [facility] ([place]) Urine, clean voided 04/16/2025 12:31 AM CDT 04/16/2025 12:38 AM CDT Allison Juarez MD LAB URINE ORDERABLES Final Result Performing Organization Address City/[facility]/ZIP Co de Phone Number [facility] GARAY ([place]) 1 [facility] [place] [address] * Pap with reflex to High Risk HPV and Genotyping (Cytology Component) (11/07/2023 10:25 AM CDT) Thin prep (Pap test) 11/07/2023 10:25 AM CDT 11/07/2023 10:25 AM CDT Narrative PATHOLOGY CH - 11/09/2023 4:55 PM CDT [facility] Department of Pathology [address] [place] [id number] Final Report Note to Patients: This report may contain a detailed description of human tissue sent by a health care provider to the laboratory for pathologic evaluation. The content of this report is essential for diagnosis and may provide important critical findings. This information may be unfamiliar to patients to review without a medical professional present. It is advised that the patient review this report in the presence of a health care provider who can answer questions and explain the details. Patient Name: SUMMER ROUSE Address: [address] [place] [id number] Gender: F : 1995 (Age: 28) Service: Location: Hospital #: [id number] Patient Type: [facility] SPECIMEN Taken: 11/07/2023 Received: 11/07/2023 Accessioned:: 11/08/2023 Reported: 11/09/2023 Physician(s): MD Allison Daley MD Diagnosis: SOURCE OF SPECIMEN Imaged Thinprep Pap Test w/ Reflex HPV - Video News Editor Cytologic Material: STATEMENT OF ADEQUACY - Satisfactory for evaluation; endocervical/transformation zone component present GENERAL CATEGORIZATION: - Negative for intraepithelial lesion or malignancy INTERPRETATION: - Predominance of coccobacilli consistent with shift in vaginal tati. Possible bacterial vaginosis RACHAEL Mayo(ASCP) Report Electronically Reviewed and Signed Out By RACHAEL Mayo(ASCP) 11/09/2023 16:55:50Specimen(s) Received: A: Imaged Thinprep Pap Test w/ Reflex HPV - Video News Editor Cytologic Material Clinical History: Last Menstrual Period: 10/30/23 Menstrual History: Previous Negative Pap The Pap test is a screening test used to aid in the detection of cervical cancer and its precursors. It should not be the sole means by which malignant and premalignant lesions are diagnosed. Both false negative and false positive results may occur. It also has poor sensitivity for the detection of endometrial lesions and should not be used to evaluate suspected endometrial abnormalities. For these reasons it is most important to obtain Pap tests at regular intervals. The performance characteristics of some immunohistochemical stains, fluorescence in-situ hybridization tests and immunophenotyping by flow cytometry cited in this report (if any) were determined by the Surgical Pathology Department at [facility] as part of an ongoing quality control representative program and in compliance with federally mandated regulations drawn from the Clinical Laboratory Improvement Act of 1988 (CLIA '88). Some of these tests rely on the use of analyte specific reagents and are subject to specific labeling requirements by the US Food and Drug Administration. Such diagnostic tests may only be performed in a facility that is certified by the Department of Health and Human Services as a high complexity laboratory under CLIA '88. The FDA has determined that such clearance or approval is not necessary. This test is used for clinical purposes. It should not be regarded as investigational or for research. Nevertheless, federal rules concerning the medical use of analyte specific reagents require that the following disclaimer be attached to the report: This test was developed and its performance characteristics determined by the Surgical Pathology Department [facility]. It has not been cleared or approved by the U. S. Food and Drug Administration. Allison Juarez MD LAB CYTOLOGY ORDERABL ES Final Result PATHOLOGY [address] [place] [address] from Last 3 Months or Most Recently Relevant to Health Maintenance Insurance [facility] IDPA Advance Directives For more information, please contact: [phone] * Full Code (Latest Code Status on File) Date Activated Date Inactivated Comments 05/14/2025 10:06 AM 05/16/2025 5:48 PM * Full Code Date Activated Date Inactivated Comments 05/14/2025 8:29 AM 05/14/2025 10:06 AM Full CPR in case of cardiopulmonary arrest * Full Code Date Activated Date Inactivated Comments 05/10/2025 7:55 PM 05/11/2025 11:16 PM * Full Code Date Activated Date Inactivated Comments 06/19/2021 7:30 PM 06/21/2021 9:55 PM * Full Code Date Activated Date Inactivated Comments 06/19/2021 4:14 PM 06/19/2021 7:30 PM Full CPR i n case of cardiopulmonary arrest Care Teams Finishing Range Supervisor Relationship Specialty Start Date End Date No, Physician PCP - General 07/01/23
--- OUTSIDE RECORDS SUMMARY | 2025-05-31 18:10 | XMS_ITS | Encounter Summary ---
Author Organization [facility] Address [address] [place] [address] Care Team Providers Care Line Installer Name Role Phone No, Physician Primary Care Provider [phone] Miscellaneous, Not In File Primary Care Provider Unavailable No, Physician Primary Care Provider [phone] Miscellaneous, Not In File Primary Care Provider Unavailable No, Physician Primary Care Provider [phone] Encounter Details Date Type Department Care Team (Late st Contact Info) Description 06/07/2017 Documentation [facility] Case Management [address] [place] [address] Allison Quiles, ELECTRICIAN MAINTENANCE Social History Tobacco Use Types Packs/Day Years Used Date Smoking Tobacco: Some Days Cigarettes Smokeless Tobacco: Never Alcohol Use Standard Drinks/Week Comments No 0 (1 standard drink = 0.6 oz pur e alcohol) Comments No Sex and Gender Information Value Date Recorded Sex Assigned at Not on file Legal Sex Female 10:35 AM INSULATOR TECHNICIAN Gender Identity Female 2023 7:33 PM CDT [...] COVID: Suspected 06/03/2020 06/03/2020 06/03/2020 4:32 AM INSULATOR TECHNICIAN Respiratory Infection ([place]ODIE), contact + droplet Comment:Automatically added due to negative COVID-19 result. 06/03/2020 06/03/2020 06/17/2020 3:0 5 AM INSULATOR TECHNICIAN COVID19 06/19/2021 06/19/2021 07/05/2021 3:05 AM INSULATOR TECHNICIAN COVID: Recovered Comment:Added based on recent COVID infection. 07/05/2021 07/26/2021 11/02/2021 3:05 AM C DT COVID: Suspected 07/01/2023 07/01/2023 07/01/2023 5:33 AM INSULATOR TECHNICIAN COVID: Suspected 02/08/2024 02/08/2024 02/08/2024 8:35 PM CDT documented as of this encounter Care Teams Line Installer Relationship Specialty Start Date End Date No, Physician PCP - General 10/23/16 03/15/18 Miscellaneous, Not In File PCP - General 03/16/18 No, Physician PCP - General 03/26/19 02/12/23 Miscellaneous, Not In File PCP - General 02/13/2306/30 No, Physician PCP - General 07/01/23 documented as of this encounter
[2025-05-31] MEDS: IBUPROFEN 600 MG TABLET PO (18:11)
== END 2025-05-31 18:15 | disposition home or self-care (01) ==
LOC: ANHED 18:08
PROVIDERS: Emergency Provider Emergency Medicine
DX: K02.9 Dental caries, unspecified (principal); H92.01 Otalgia, right ear
CPT/HCPCS: 99283; A9270